=== PATIENT | female | born 1965 | race Caucasian/White ===

== ENCOUNTER 2025-04-25 02:26 | Day surgery (SDC) | payer OTHER, SELFPAY ==
--- OUTSIDE RECORDS SUMMARY | 2025-04-02 12:40 | XMS_ITS | Encounter Summary ---
Author Organization [place] Address [address] [facility] [place] [address] Care Team Providers Care Process Control Supervisor Name Role Phone Mariam Solorzano MD Unavailable [phone] Mariam Solorzano MD Primary Care Provider [phone] August, Mina Downey MD Unavailable Reason for Referral * Diagnostic Imaging XR (Routine) - Pending Review Specialty Diagnoses / Procedures Referred By Sabina cortés Referred To Contact Radiology. Diagnoses Acute cough Acute intractable headache, unspecified headache type Shortness of breath Procedures XR Chest 2 Views XR Chest 2 Views Sue Feliciano CNP [address] [place] [id number] Phone: tel: fax: Referral ID Status Reason Start Date Expiration Date V isits Requested Visits Authorized [id number] Pending Review 04/02/2025 04/02/2026 1 1 Reason for Visit * Reason Comments Cough Coughing out phlegm SOB, and congestion for the last few days. Co worker have pneumonia. Encounter Details Date Type Department Care Team (Latest Contact Info) Description 04/02/2025 12:40 PM CDT Office Visit [facility] [place] [address] [phone] Sue Feliciano CNP [address] [place] [id number] Pneumonia of both lower lobes due to infectious organism (Primary Dx); Acute cough; Acute intractable headache, unspecified headache type; Shortness of breath; History of candidal vulvovaginitis Social History Tobacco Use Types Packs/Day Years Used Date Smoking Tobacco: Never Passive Smoke Exposure: Never Smokeless Tobacco: Never Alcohol Use Standard Drinks/Week Comments Yes 0 (1 standard drink = 0.6 oz pur e alcohol) occasional AUDIT-C Answer Date Recorded Q1: How often do you have a drink containing alc ohol? 2-4 times a month 10/16/2023 Average Number of Drinks Not on file 024 Frequency of Binge Drinking Not on file 09/30 PHQ-2 Answer Date Recorded PHQ-2 Score 1 02/20/2025 [facility] - Occupational Stress Questionnaire Answer Date Recorded Do you feel stress - tense, restless, nervous, or anxious, or unable to sleep at night because your mind is troubled all the time - these days? Rather much 02/20/2025 Exercise Vital Sign Answer Date Recorde d On average, how many days pe r week do you engage in moderate to strenuous exercise (like a brisk walk)? 0 days Minutes of Exercise per Session Not on file 02/20/2025 Adolescent Education Answer Date Record ed Getting School Help Needed Not on file 08/30 Social Connections Answer Date Recorded How often do you feel lonely or isolated from th ose around you? Never 02/20/2025 Food Insecurity Answer Date Recorded Within the past 12 months, d id you worry that your food would run out before you got money to buy more? No 02/20/2025 Within the past 12 months, d id the food you bought just not last and you didn t have money to get more? No 02/20/2025 Housing Stability Answer Date Recorded Do you have housing? (Housin g is defined as stable permanent housing and does not include staying outside in a car, in a tent, in an abandoned building, in an overnight prison, or couch-surfing.) Yes 02/20/2025 Are you worried about losing your housing? No 02/20/2025 Financial Resource Strain Answer Date R ecorded Within the past 12 months, h ave you or your family members you live with been unable to get utilities (heat, electricity) when it was really needed? No 02/20/2025 Transportation Needs Answer Date Record ed Within the past 12 months, h as lack of transportation kept you from medical appointments, getting your medicines, non-medical meetings or appointments, work, or from getting things that you need? No 02/20/2025 Interpersonal Safety Answer Date Record ed Do you feel physically and e motionally safe where you currently live? Yes 02/20/2025 Within the past 12 months, h ave you been hit, slapped, kicked or otherwise physically hurt by someone? No 02/20/2025 Within the past 12 months, h ave you been humiliated or emotionally abused in other ways by your partner or ex-partner? 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 Gender Identity Not on file Sexual Orientation Not on file documented as of this encounter Last Filed Vital Signs Vital Sign Reading Time Taken Comments Blood Pressure 122/74 04/02/2025 12:42 PM CDT Pulse 95 04/02/2025 12:42 PM CDT Temperature 37.7 C (99.8 F) 04/02/2025 12:42 PM CDT Respiratory Rate 18 04/02/2025 12:42 PM CDT Oxygen Saturation 95% 04/02/2025 12:42 PM CDT Inhaled Oxygen Concentration - - Weight 72.7 kg (160 lb 3.2 oz) 04/02/2025 12:42 PM CDT Height 163.8 cm (5' 4.5) 04/02/2025 12:42 PM CD T Body Mass Index 27.07 04/02/2025 12:42 PM CDT documented in this encounter Patient Instructions * Patient Instructions* Sue Feliciano CNP - 04/02/2025 12:40 PM CDT Continue to take Mucinex during the day and try Delsym cough syrup at bedtime for cough suppression. If your symptoms worsen or fail to improve you should follow up with primary care or the emergency room if symptoms are worse. * Attachments The following attachments cannot be sent through Care Everywhere. * Pneumonia (Malaysian) documented in this encounter Progress Notes * Lobo Scott MA - 04/02/2025 12:40 PM CDT Urgent Care Clinic Visit Chief Complaint Patient presents with Cough Coughing out phlegm SOB, and congestion for the last few days. Co worker have pneumonia. 04/02/2025 12:46 PM Additional Questions Roomed by Lobo Scott MA Accompanied by Self * Sue Feliciano CNP - 04/02/2025 12:40 PM CDT ICD-10-CM 1. Pneumonia of both lower lobes due to infectious organism J18.9 amoxicillin (AMOXIL) 500 MG capsule azithromycin (ZITHROMAX) 250 MG tablet albuterol (PROAIR HFA/PROVENTIL HFA/VENTOLIN HFA) 108 (90 Base) MCG/ACT inhaler 2. Acute cough R05.1 CBC with platelets and differential D dimer quantitative albuterol (PROVENTIL) neb solution 2.5 mg COVID-19 Virus (Coronavirus) by PCR Nasal, Anterior XR Chest 2 Views CBC with platelets and differential COVID-19 Virus (Coronavirus) by PCR Nasal, Anterior CANCELED: XR Chest 2 Views 3. Acute intractable headache, unspecified headache type R51.9 CBC with platelets and differential XR Chest 2 Views CBC with platelets and differential CANCELED: XR Chest 2 Views 4. Shortness of breath R06.02 CBC with platelets and differential D dimer quantitative albuterol (PROVENTIL) neb solution 2.5 mg COVID-19 Virus (Coronavirus) by PCR Nasal, Anterior XR Chest 2 Views CBC with platelets and differential COVID-19 Virus (Coronavirus) by PCR Nasal, Anterior albuterol (PROAIR HFA/PROVENTIL HFA/VENTOLIN HFA) 108 (90 Base) MCG/ACT inhaler CANCELED: XR Chest 2 Views 5. History of candidal vulvovaginitis Z86.19 fluconazole (DIFLUCAN) 150 MG tablet She felt it was easier to take deep breaths and was not coughing as often after the albuterol neb was given. Will send in RX for albuterol inhaler. Azithromycin and amoxicillin to treat pneumonia. Rest. Fluids. Delsym for cough suppression at night. Mucinex as desired during the day. Tylenol or ibuprofen as needed for fever or pain. Recheck in 10 days if symptoms have not improved, sooner if they worsen. History of yeast vaginitis with antibiotics so fluconazole tablet is sent to the pharmacy. She is instructed not to take this until she is done with the antibiotics and only if she has symptoms. Red flag warning signs and when to go to the emergency room discussed. Reviewed potential adverse reactions to medications. Very mild elevation of the d dimer but this would correlate with bilateral pneumonia as well. She knows to go to the emergency room if her shortness of breath worsens. Chest x-ray as read by this provider shows bilateral lower lobe infiltrates, no effusions or pneumothorax, heart is within normal size limits. Labs: Recent Results (from the past 24 hours) D dimer quantitative Result Value Ref Range D-Dimer Quantitative 0.62 (H) 0.00 - 0.50 ug/mL FEU Narrative This D-dimer assay is intended for use in conjunction with a clinical pretest probability assessment model to exclude pulmonary embolism (PE) and deep venous thrombosis (DVT) in outpatients suspectedof PE or DVT. The cut-off value is 0.50 ug/mL FEU. For patients 50 years of age or older, the application of age-adjusted cut-off values for D-Dimer may increase the specificity without significant effect on sensitivity. The literature suggested calculation age adjusted cut-off in ug/L = age in years x 10 ug/L. The results in this laboratory are reported as ug/mL rather than ug/L. The calculation for age adjusted cut off in ug/mL= age in years x 0.01 ug/mL. For example, the cut off for a 76 year old male is 76 x 0.01 ug/mL = 0.76 ug/mL (760 ug/L). Len Braxton et al. Age adjusted D-dimer cut-off levels to rule out pulmonary embolism: The ADJUST-PE Study. RICARDO 2014;311:6809-2260.; RUBIO Figueroa et al. Diagnostic accuracy of conventional or age adjusted D-dimer cutoff values in older patients with suspected venous thromboembolism. Systemic review and meta- analysis. BMJ 2013:346:f2492. CBC with platelets and differential Narrative The following orders were created for panel order CBC with platelets and differential. Procedure Abnormality Status --------- ------ CBC with platelets and ...[[id number]] Final result Please view results for these tests on the individual orders. CBC with platelets and differential Result Value Ref Range WBC Count 8.78 4.00 - 11.00 10e3/uL RBC Count 4.37 3.80 - 5.20 10e6/uL Hemoglobin 12.5 11.7 - 15.7 g/dL Hematocrit 37.3 35.0 - 47.0 % MCV 85.4 78.0 - 100.0 fL MCH 28.6 26.5 - 33.0 pg MCHC 33.5 31.5 - 36.5 g/dL RDW 12.4 10.0 - 15.0 % Platelet Count 338 150 - 450 10e3/uL % Neutrophils 76.7 % % Lymphocytes 9.6 % % Monocytes 10.8 % % Eosinophils 2.6 % % Basophils 0.2 % % Immature Granulocytes 0.1 % Absolute Neutrophils 6.73 1.60 - 8.30 10e3/uL Absolute Lymphocytes 0.84 0.80 - 5.30 10e3/uL Absolute Monocytes 0.95 0.00 - 1.30 10e3/uL Absolute Eosinophils 0.23 0.00 - 0.70 10e3/uL Absolute Basophils <0.04 0.00 - 0.20 10e3/uL Absolute Immature Granulocytes <0.04 <=0.40 10e3/uL XR Chest 2 Views Narrative EXAM: XR CHEST 2 VIEWS LOCATION: [facility] DATE: 04/02/2025 INDICATION: Acute cough, shortness of breath COMPARISON: None. Impression IMPRESSION: Right lower lobe consolidation, suspicious for infection. Additional patchy opacity in the left lower lung, which may represent an additional area of infection versus atelectasis. No pleural effusion or pneumothorax. Cardiac silhouette and mediastinal contours are normal. SUBJECTIVE: Mariam Thompson is a 60 year old female presenting with a chief complaint of Chief Complaint Patient presents with Cough Coughing out phlegm SOB, and congestion for the last few days. Co worker have pneumonia. Started with headaches, then got a cough which is making head hurt worse, feels weak, sore throat, and shortness of breath. Review of systems is negative except for as noted in the HPI. OBJECTIVE BP 122/74 (BP Location: Right arm, Patient Position: Sitting, Cuff Size: Adult Regular) Pulse 95 Temp 99.8 ??F (37.7 ??C) (Oral) Resp 18 Ht 1.638 m (5' 4.5) Wt 72.7 kg (160 lb 3.2 oz) LMP (LMP Unknown) SpO2 95% BMI 27.07 kg/m?? GENERAL: Alert, mild distress SKIN: skin is clear, no rash or abnormal pigmentation HEAD: The head is normocephalic. EYES: The eyes are normal. The conjunctivae and cornea normal. NECK: The neck is supple and thyroid is normal, no masses; LYMPH NODES: No adenopathy HENT: Bilateral tympanic membranes and canals appear normal, nasal passages are swollen with clear rhinorrhea, pharynx is LUNGS: Expiratory wheezes heard in bases CV: Rhythm is regular. S1 and S2 are normal. No murmurs. EXTREMITIES: Symmetric extremities no deformities Sue Bosch APRN, CNP [place] [facility] Provider The use of [employer] dictation services may have been used to construct the content in this note; any grammatical or spelling errors are non- intentional. Please contact the author of this note directly if you are in need of any clarification. documented in this encounter Plan of Treatment Not on file documented as of this encounter Procedures Procedure Name Priority Date/Time Associated Diagnosis Comments COVID-19 VIRUS (CORONAVIRUS) BY PCR Routine 04/02/2025 1:21 PM CDT Acute cough Shortness of breath CBC WITH PLATELETS AND DIFFERENTIAL Routine 04/02/2025 1:20 PM CDT Acute cough Acute intractable headache, unspecified headache type Shortness of breath CBC WITH PLATELETS & DIFFERENTIAL Routine 04/02/2025 1:20 PM CDT Acute cough Acute intractable headache, unspecified headache type Shortness of breath D DIMER QUANTITATIVE STAT 04/02/2025 1:20 PM CDT Acute cough Shortness of breath documented in this encounter Results * XR Chest 2 Views (04/02/2025 1:30 PM CDT) Anatomical Region Laterality Modality Chest Computed Radiogr aphy 04/02/2025 1:30 PM CDT Impressions 04/02/2025 1:33 PM CDT IMPRESSION: Right lower lobe consolidation, suspicious for infection. Additional patchy opacity in the left lower lung, which may represent an additional area of infection versus atelectasis. No pleural effusion or pneumothorax. Cardiac silhouette and mediastinal contours are normal. Narrative 04/02/2025 1:33 PM CDT EXAM: XR CHEST 2 VIEWS LOCATION: [facility] DATE: 04/02/2025 INDICATION: Acute cough, shortness of breath COMPARISON: None. Procedure Note Clifton Carranza MD - 04/02/2025 EXAM: XR CHEST 2 VIEWS LOCATION: [facility] DATE: 04/02/2025 INDICATION: Acute cough, shortness of breath COMPARISON: None. IMPRESSION: Right lower lobe consolidation, suspicious for infection.Additional patchy opacity in the left lower lung, which may represent anadditional area of infection versus atelectasis. No pleural effusion orpneumothorax. Cardiac silhouette and mediastinal contours are normal. Sue Feliciano [facility] DIAGNOSTIC IMAG[facility] ORDER DIVYA Final Result * COVID-19 Virus (Coronavirus) by PCR Nasal, Anterior (04/02/2025 1:21 PM CDT) SARS CoV2 PCR Negative Negative 04/02/2025 6:39 PM CDT [facility] Comment:NEGATIVE: SARS-CoV-2 (COVID-19) RNA not detected, presumed negative. Swab (Nasal, Anterior) Non-blood Collection / Unknown 04/02/2025 1:21 PM CDT 04/02/2025 1:34 PM CDT Narrative [facility] - 04/02/2025 6:39 PM CDT Testing was performed using the Aptima SARS-CoV-2 Assay on the [employer] Instrument System. This [place] FDA cleared test is for use in the detection of SARS-CoV-2 in individuals who meet SARS-CoV-2 clinical and/or epidemiological criteria. This test is for in vitro diagnostic use under the US FDA for laboratories certified under CLIA to perform high complexity testing. A negative result does not rule out the presence of PCR inhibitors in the specimen or target RNA in concentration below the limit of detection for the assay. The possibility of a false negative should be considered if the patient's recent exposure or clinical presentation suggests COVID-19. This test was validated by the [facility]. This laboratory is certified under the Clinical Laboratory Improvement Amendments of 1988 (CLIA-88) as qualified to perform high complexity laboratory testing. Sue Feliciano [facility] - MICRO GENERAL ORDERABL ES Final Result [facility] Inf. Diseases Di[facility]. Lab [address] [facility], [address] [place] [address], [facility] * CBC with platelets and differential (04/02/2025 1:20 PM CDT) WBC Count 8.78 4.00 - 11.00 10e3/uL 04/02/2025 1:25 PM CDT [facility] RBC Count 4.37 3.80 - 5.20 10e6/uL 04/02/2025 1:25 PM CDT [facility] Hemoglobin 12.5 11.7 - 15.7 g/dL 04/02/2025 1:25 PM CDT [facility] Hematocrit 37.3 35.0 - 47.0 % 04/02/2025 1:25 PM CDT [facility] MCV 85.4 78.0 - 100.0 fL 04/02/2025 1:25 PM CDT [facility] MCH 28.6 26.5 - 33.0 pg 04/02/2025 1:25 PM CDT [facility] MCHC 33.5 31.5 - 36.5 g/dL 04/02/2025 1:25 PM CDT [facility] RDW 12.4 10.0 - 15.0 % 04/02/2025 1:25 PM CDT [facility] Platelet Count 338 150 - 450 10e3/uL 04/02/2025 1:25 PM CDT [facility] % Neutrophils 76.7 % 04/02/2025 1:25 PM CDT [facility] % Lymphocytes 9.6 % 04/02/2025 1:25 PM CDT [facility] % Monocytes 10.8 % 04/02/2025 1:25 PM CDT [facility] % Eosinophils 2.6 % 04/02/2025 1:25 PM CDT [facility] % Basophils 0.2 % 04/02/2025 1:25 PM CDT [facility] % Immature Granulocytes 0.1 % 04/02/2025 1:25 PM CDT [facility] Absolute Neutrophils 6.73 1.60 - 8.30 10e3/uL 04/02/2025 1:25 PM CDT [facility] Absolute Lymphocytes 0.84 0.80 - 5.30 10e3/uL 04/02/2025 1:25 PM CDT [facility] Absolute Monocytes 0.95 0.00 - 1.30 10e3/uL 04/02/2025 1:25 PM CDT [facility] Absolute Eosinophils 0.23 0.00 - 0.70 10e3/uL 04/02/2025 1:25 PM CDT [facility] Absolute Basophils <0.04 0.00 - 0.20 10e3/uL 04/02/2025 1:25 PM CDT [facility] Absolute Immature Granulocytes <0.04 <=0.40 10e3/uL 04/02/2025 1:25 PM CDT [facility] Blood BLOOD SPECIMEN / Unknown Venipuncture / Unknown 04/02/2025 1:20 PM CDT 04/02/2025 1:20 PM CDT us Sue Feliciano CNP LAB - BLOOD ORDERABLES Final Result [facility] [address] Lab (no room number, 1st floor of clinic) [place] [address], [facility] * (ABNORMAL) D dimer quantitative (04/02/2025 1:20 PM CDT) D-Dimer Quantitative 0.62(H) 0.00 - 0.50 ug/mL FEU 04/02/2025 2:00 PM CDT [facility] Blood BLOOD SPECIMEN / Unknown Venipuncture / Unknown 04/02/2025 1:20 PM CDT 04/02/2025 1:20 PM CDT Narrative [facility] - 04/02/2025 2:00 PM CDT This D-dimer assay is intended for use in conjunction with a clinical pretest probability assessment model to exclude pulmonary embolism (PE) and deep venous thrombosis (DVT) in outpatients suspected of PE or DVT. The cut-off value is 0.50 ug/mL FEU. For patients 50 years of age or older, the application of age-adjusted cut-off values for D-Dimer may increase the specificity without significant effect on sensitivity. The literature suggested calculation age adjusted cut-off in ug/L = age in years x 10 ug/L. The results in this laboratory are reported as ug/mL rather than ug/L. The calculation for age adjusted cut off in ug/mL= age in years x 0.01 ug/mL. For example, the cut off for a 76 year old male is 76 x 0.01 ug/mL = 0.76 ug/mL (760 ug/L). M Irais et al. Age adjusted D-dimer cut-off levels to rule out pulmonary embolism: The ADJUST-PE Study. RICARDO 2014;311:6290-0687.; HJ Henry et al. Diagnostic accuracy of conventional or age adjusted D-dimer cutoff values in older patients with suspected venous thromboembolism. Systemic review and meta-analysis. BMJ 2013:346:f2492. us Sue Feliciano CNP LAB - BLOOD ORDERABLES Final Result LABORATORY [facility] [address] Lab (no room number, 1st floor of clinic) [place] [address], [facility] documented in this encounter Visit Diagnoses Diagnosis Pneumonia of both lower lobes due to infectious organism- Primary Acute cough Acute intractable headache, unspecified headache type Shortness of breath History of candidal vulvovaginitis Personal history of other genital system and obstetric disorders Acute cough Acute intractable headache, unspecified headache type Shortness of breath documented in this encounter Administered Medications Inactive Administered Medications - up to 3 most recent administrations Medication Order MAR Action Action Date Dose Rate Site albuterol (PROVENTIL) neb solution 2.5 mg 2.5 mg, Nebulization, ONCE, On Mabel 04/02/25 at 1330, For 1 doseIndications:Acute cough,Shortness of breath $Given 04/02/2025 1:34 PM CDT 2.5 mg documented in this encounter Care Teams Process Control Supervisor Relationship Specialty [place] [address] [place] [address] PCP - General Family Medicine 10/16/23 [place] [address] [place] [address] Assigned PCP 09/22/23August, Mina Downey MD [address] [facility] [address] [place] [address] Assigned Heart and Vascular Provider 10/23/23 documented as of this encounter
--- OUTSIDE RECORDS SUMMARY | 2025-04-02 13:20 | XMS_ITS | Encounter Summary ---
Author Organization [place] Address [address] [place] [address]. [place] [address] Care Team Providers Care Electrical Maintenance Man Name Role Phone Mariam Solorzano MD Unavailable [phone] Mariam Solorzano MD Primary Care Provider [phone] August, Mina Downey MD Unavailable [phone] Reason for Visit * Diagnostic Imaging XR (Routine) - Pending Review Specialty Diagnoses / Procedures Referred By Sabina cortés Referred To Contact Radiology. Diagnoses Acute cough Acute intractable headache, unspecified headache type Shortness of breath Procedures XR Chest 2 Views XR Chest 2 Views Sue Feliciano CNP [address] [place] [address] Phone: tel: fax: Referral ID Status Reason Start Date Expiration Date V isits Requested Visits Authorized [id number] Pending Review 04/02/2025 04/02/2026 1 1 Encounter Details Date Type Department Care Team (Latest Contact Info) Description 04/02/2025 1:20 PM CDT Ancillary Procedure [facility] [address] [phone] Sue Feliciano CNP [address] [place] [phone] Acute cough; Acute intractable headache, unspecified headache type; Shortness of breath Social History Tobacco Use Types Packs/Day Years [...] Answer Date Recorded PHQ-2 Score 1 02/20/2025 [facility] - Occupational Stress Questionnaire Answer Date [...] Answer Date Recorded Do you have housing? 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 DATE: 04/02/2025 INDICATION: Acute cough, shortness of breath COMPARISON: None. Procedure Note Clifton Carranza MD - 04/02/2025 EXAM: XR CHEST 2 VIEWS LOCATION: [facility] DATE: 04/02/2025 INDICATION: Acute cough, shortness of breath COMPARISON: None. IMPRESSION: Right lower lobe consolidation, suspicious for infection.Additional patchy opacity in the left lower lung, which may represent anadditional area of infection versus atelectasis. No pleural effusion orpneumothorax. Cardiac silhouette and mediastinal contours are normal. Sue Feliciano [facility]NO[facility]IC [facility] ORDER DIVYA Final Result documented in this encounter Visit Diagnoses Diagnosis Acute cough Acute intractable headache, unspecified headache type Shortness of breath documented in this encounter Additional Health Concerns Infection Onset Date Last Indicated Resolved Time Rule Out COVID-19 04/02/2025 04/02/2025 04/02/2025 6:39 PM CDT documented as of this encounter Care Teams Electrical Maintenance Man Relationship Specialty Start [place] [address] [place] [address] PCP - General Family Medicine 10/16/23 [place] [address] [place] [address] Assigned PCP 09/22/23August, Mina Downey MD [address] [facility] [address] [place] [address] Assigned Heart and Vascular Provider 10/23/23 documented as of this encounter
--- OUTSIDE RECORDS SUMMARY | 2025-04-09 09:30 | XMS_ITS | Encounter Summary ---
Author Organization [place] Address [address] [place] [address]. [place] [address] Care Team Providers Care Blasting Cap Assembler Name Role Phone Mariam Solorzano MD Unavailable [phone] Mariam Solorzano MD Primary Care Provider [phone] August, Mina Downey MD Unavailable [phone] Reason for Visit * Reason Comments Cough - was diagnosed with pneumonia; still coughing up phlegm Encounter Details Date Type Department Care Team (Late st Contact Info) Description 04/09/2025 9:30 AM CDT Office Visit [address] [address] Andres Fishman APRN [facility] [address] [place] [address] Acute cough (Primary Dx) Social History Tobacco Use Types Packs/Day Years [...] Answer Date Recorded PHQ-2 Score 1 02/20/2025 [facility] of Occupat ional Health - Occupational Stress [...] in an abandoned building, in an overnight half-way, or couch-surfing.) Yes 02/20/2025 Are you worried [...] on file Legal 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 Female 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 Gender Identity Not on file Sexual Orientation Not on file documented as of this encounter Last Filed Vital Signs Vital Sign Reading Time Taken Comments Blood Pressure 120/69 04/09/2025 9:06 AM CDT Pulse 69 04/09/2025 9:06 AM CDT Temperature 36.6 C (97.8 F) 04/09/2025 9:06 AM CDT Respiratory Rate 18 04/09/2025 9:06 AM CDT Oxygen Saturation 97% 04/09/2025 9:06 AM CDT Inhaled Oxygen Concentration - - Weight 70.9 kg (156 lb 3.2 oz) 04/09/2025 9:06 A M CDT Height 163.8 cm (5' 4.5) 04/09/2025 9:06 AM CDT Body Mass Index 26.4 04/09/2025 9:06 AM CDT documented in this encounter Patient Instructions * Patient Instructions* Andres Fishman APRN MGMT ANALYST - 04/09/2025 9:30 AM CDT Images from the original note were not included. Cough: Care Instructions Overview A cough is your body's response to something that bothers your throat or airways. Many things can cause a cough. You might cough because of a cold or the flu, bronchitis, or asthma. Smoking, postnasal drip, allergies, and stomach acid that backs up into your throat also can cause coughs. A cough is a symptom, not a disease. Most coughs stop when the cause, such as a cold, goes away. You can take a few steps at home to cough less and feel better. Follow-up care is a xavier part of your treatment and safety. Be sure to make and go to all appointments, and call your doctor if you are having problems. It's also a good idea to know your test resultsand keep a list of the medicines you take. How can you care for yourself at home? Drink lots of water and other fluids. This helps thin the mucus and soothes a dry or sore throat. Honey or lemon juice in hot water or tea may ease a dry cough. Take cough medicine as directed by your doctor. Prop up your head on pillows to help you breathe and ease a dry cough. Try cough drops or hard candy to soothe a dry or sore throat. Do not smoke. Avoid secondhand smoke. If you need help quitting, talk to your doctor about stop-smoking programs and medicines. These can increase your chances of quitting for good. When should you call for help? Call 911 anytime you think you may need emergency care. For example, call if: You have severe trouble breathing. Call your doctor now or seek immediate medical care if: You cough up blood. You have new or worse trouble breathing. You have a new or higher fever. You have a new rash. Watch closely for changes in your health, and be sure to contact your doctor if: You cough more deeply or more often, especially if you notice more mucus or a change in the color of your mucus. You have new symptoms, such as a sore throat, an earache, or sinus pain. You do not get better as expected. documented in this encounter Progress Notes * Andres Fishman APRN CNP - 04/09/2025 9:30 AM CDT Images from the original note were not included. Office Visit: Assessment & Plan (R05.1) Acute cough (primary encounter diagnosis) Comment: Persistent cough post PNA diagnosis. Completed Azithromycin, still taking Amoxicillin. VSS, LS clear, oxygenating well. Has been afebrile. Suspect post infectious cough. Re-evaluate CBC, if trending up may consider repeating azithromycin vs Levaquin. Start prednisone today, rest and fluids. Red Flag s/s discussed. Plan: CBC with platelets and differential, predniSONE (DELTASONE) 20 MG tablet BMI Estimated body mass index is 26.4 kg/m?? as calculated from the following: Height as of this encounter: 1.638 m (5' 4.5). Weight as of this encounter: 70.9 kg (156 lb 3.2 oz). Patient should follow up PRN for new or worsening symptoms. All questions answered to patient's satisfaction. Warning signs of when to seek emergency care were discussed. Ayesha Becerra is a 60 year old, presenting for the following health issues: Cough (- was diagnosed with pneumonia; still coughing up phlegm) 04/09/2025 9:06 AM Additional Questions Roomed by KAROLINA Regalado Accompanied by Self Cough History of Present Illness Reason for visit: Cough History of Present Illness- Mariam Thompson, 60-year-old female - Treated with azithromycin and amoxicillin for pneumonia prior to visit - Persistent productive cough since treatment, sputum unchanged from active pneumonia - Reports feeling better after sleeping all day Sunday and all night, but continues to cough up sputum - Experiences lightheadedness and feeling loopy during coughing episodes, especially when trying to perform tasks like typing - Difficulty catching breath during severe coughing episodes - Denies chest pain except when coughing - Denies fever at home - No current wheezing, but had wheezing previously - Albuterol use triggers coughing fits, no longer wheezing - Using cough syrup at night, helps with sleep - Taking amoxicillin and large pills twice daily as part of current treatment - History of high blood pressure and hyperlipidemia, started on Lipitor and antihypertensive medication last year - Prefers to avoid medications when possible - Reports being generally healthy for age, rarely gets colds Review of Systems Constitutional, neuro, ENT, endocrine, pulmonary, cardiac, gastrointestinal, genitourinary, musculoskeletal, integument and psychiatric systems are negative, except as otherwise noted. Objective BP 120/69 (BP Location: Right arm, Patient Position: Sitting, Cuff Size: Adult Regular) Pulse 69 Temp 97.8 ??F (36.6 ??C) (Oral) Resp 18 Ht 1.638 m (5' 4.5) Wt 70.9 kg (156 lb 3.2 oz) LMP (LMP Unknown) SpO2 97% No BMI 26.40 kg/m?? Body mass index is 26.4 kg/m??. Physical Exam GENERAL: alert and no distress NECK: no adenopathy, no asymmetry, masses, or scars RESP: lungs clear to auscultation - no rales, rhonchi or wheezes CV: regular rate and rhythm, normal S1 S2, no S3 or S4, no murmur, click or rub, no peripheral edema ABDOMEN: soft, nontender, no hepatosplenomegaly, no masses and bowel sounds normal MS: no gross musculoskeletal defects noted, no edema Recent Results (from the past 24 hours) CBC with platelets and differential Narrative The following orders were created for panel order CBC with platelets and differential. Procedure Abnormality Status --------- ------ CBC with platelets and ...[[id number]] Abnormal Final result Please view results for these tests on the individual orders. CBC with platelets and differential Result Value Ref Range WBC Count 5.98 4.00 - 11.00 10e3/uL RBC Count 4.60 3.80 - 5.20 10e6/uL Hemoglobin 13.0 11.7 - 15.7 g/dL Hematocrit 40.2 35.0 - 47.0 % MCV 87.4 78.0 - 100.0 fL MCH 28.3 26.5 - 33.0 pg MCHC 32.3 31.5 - 36.5 g/dL RDW 12.8 10.0 - 15.0 % Platelet Count 455 (H) 150 - 450 10e3/uL % Neutrophils 64.9 % % Lymphocytes 20.6 % % Monocytes 8.4 % % Eosinophils 4.5 % % Basophils 0.8 % % Immature Granulocytes 0.8 % Absolute Neutrophils 3.88 1.60 - 8.30 10e3/uL Absolute Lymphocytes 1.23 0.80 - 5.30 10e3/uL Absolute Monocytes 0.50 0.00 - 1.30 10e3/uL Absolute Eosinophils 0.27 0.00 - 0.70 10e3/uL Absolute Basophils 0.05 0.00 - 0.20 10e3/uL Absolute Immature Granulocytes 0.05 <=0.40 10e3/uL Patient Instructions Cough: Care Instructions Overview A cough is your body's response to something that bothers your throat or airways. Many things can cause a cough. You might cough because of a cold or the flu, bronchitis, or asthma. Smoking, postnasal drip, allergies, and stomach acid that backs up into your throat also can cause coughs. A cough is a symptom, not a disease. Most coughs stop when the cause, such as a cold, goes away. You can take a few steps at home to cough less and feel better. Follow-up care is a xavier part of your treatment and safety. Be sure to make and go to all appointments, and call your doctor if you are having problems. It's also a good idea to know your test resultsand keep a list of the medicines you take. How can you care for yourself at home? Drink lots of water and other fluids. This helps thin the mucus and soothes a dry or sore throat. Honey or lemon juice in hot water or tea may ease a dry cough. Take cough medicine as directed by your doctor. Prop up your head on pillows to help you breathe and ease a dry cough. Try cough drops or hard candy to soothe a dry or sore throat. Do not smoke. Avoid secondhand smoke. If you need help quitting, talk to your doctor about stop-smoking programs and medicines. These can increase your chances of quitting for good. When should you call for help? Call 911 anytime you think you may need emergency care. For example, call if: You have severe trouble breathing. Call your doctor now or seek immediate medical care if: You cough up blood. You have new or worse trouble breathing. You have a new or higher fever. You have a new rash. Watch closely for changes in your health, and be sure to contact your doctor if: You cough more deeply or more often, especially if you notice more mucus or a change in the color of your mucus. You have new symptoms, such as a sore throat, an earache, or sinus pain. You do not get better as expected. Signed Electronically by: Andres Fishman APRN CNP Answers submitted by the patient for this visit: General Questionnaire (Submitted on 04/09/2025) Chief Complaint: Chronic problems general questions HPI Form What is the reason for your visit today? : cough Questionnaire about: Chronic problems general questions HPI Form (Submitted on 04/09/2025) Chief Complaint: Chronic problems general questions HPI Form documented in this encounter Plan of Treatment Not on file documented as of this encounter Procedures Procedure Name Priority Date/Time Associated Diagnosis Comments CBC WITH PLATELETS AND DIFFERENTIAL Routine 04/09/2025 9:45 AM CDT Acute cough CBC WITH PLATELETS & DIFFERENTIAL Routine 04/09/2025 9:45 AM CDT Acute cough documented in this encounter Results * (ABNORMAL) CBC with platelets and differential (04/09/2025 9:45 AM CDT) Pathologist [facility] WBC Count 5.98 4.00 - 11.00 10e3/uL 04/09/2025 9:53 AM CDT [facility] RBC Count 4.60 3.80 - 5.20 10e6/uL 04/09/2025 9:53 AM CDT [facility] Hemoglobin 13.0 11.7 - 15.7 g/dL 04/09/2025 9:53 AM CDT [facility] Hematocrit 40.2 35.0 - 47.0 % 04/09/2025 9:53 AM CDT [facility] MCV 87.4 78.0 - 100.0 fL 04/09/2025 9:53 AM CDT [facility] MCH 28.3 26.5 - 33.0 pg 04/09/2025 9:53 AM CDT [facility] MCHC 32.3 31.5 - 36.5 g/dL 04/09/2025 9:53 AM CDT [facility] RDW 12.8 10.0 - 15.0 % 04/09/2025 9:53 AM CDT [facility] Platelet Count 455(H) 150 - 450 10e3/uL 04/09/2025 9:53 AM CDT [facility] % Neutrophils 64.9 % 04/09/2025 9:53 AM CDT [facility] % Lymphocytes 20.6 % 04/09/2025 9:53 AM CDT [facility] % Monocytes 8.4 % 04/09/2025 9:53 AM CDT [facility] % Eosinophils 4.5 % 04/09/2025 9:53 AM CDT [facility] % Basophils 0.8 % 04/09/2025 9:53 AM CDT [facility] % Immature Granulocytes 0.8 % 04/09/2025 9:53 AM CDT [facility] Absolute Neutrophils 3.88 1.60 - 8.30 10e3/uL 04/09/2025 9:53 AM CDT [facility] Absolute Lymphocytes 1.23 0.80 - 5.30 10e3/uL 04/09/2025 9:53 AM CDT [facility] Absolute Monocytes 0.50 0.00 - 1.30 10e3/uL 04/09/2025 9:53 AM CDT [facility] Absolute Eosinophils 0.27 0.00 - 0.70 10e3/uL 04/09/2025 9:53 AM CDT [facility] Absolute Basophils 0.05 0.00 - 0.20 10e3/uL 04/09/2025 9:53 AM CDT [facility] Absolute Immature Granulocytes 0.05 <=0.40 10e3/uL 04/09/2025 9:53 AM CDT [facility] Blood BLOOD SPECIMEN / Unknown Venipuncture / Unknown 04/09/2025 9:45 AM CDT 04/09/2025 9:45 AM CDT us Andres Fishman GANG SUPERVISOR PIPE LINES MGMT ANALYST LAB - BLOOD ORDERABLES Fin al Result [facility] [address] [facility] (no room number, 1st floor of clinic) [place] [address], [facility] documented in this encounter Visit Diagnoses Diagnosis Acute cough- Primary documented in this encounter Care Teams Blasting Cap Assembler Relationship Specialty [place] [address] [place] [address] PCP - General Family Medicine 10/16/23 [place] [address] [place] [address] Assigned PCP 09/22/23 Mina Sotelo MD [address] [facility] [address] [place], [place] [address] Assigned Heart and Vascular Provider 10/23/23 documented as of this encounter
[2025-04-25] VITALS (17 sets, daily range): BP systolic 103–154; BP diastolic 58–98; PULSE 67–92; RESP 14–22; TEMP 36.2–37.4; O2SAT 90–99; BMI 28.3
--- OUTSIDE RECORDS SUMMARY | 2025-04-25 02:28 | XMS_ITS | Encounter Summary ---
Author Organization [place] Address [address] [place] [address]. [place] [address] Care Team Providers Care Rand Maker Name Role Phone Mariam Solorzano MD Unavailable [phone] Mariam Solorzano MD Primary Care Provider [phone] August, Mina Downey MD Unavailable [phone] Encounter Details Date Type Department Care Team (Late st Contact Info) Description 10/16/2023 MyC Medical Advice [facility] [id number] [place] [phone] Mariam Solorzano MD [address] [place] [address] Social History Tobacco Use Types Packs/Day Years Used Date Smoking Tobacco: Never Smokeless Tobacco: Never Alcohol Use Standard Drinks/Week Comments Yes 0 (1 standard drink = 0.6 oz pur e alcohol) occasional Social Connection and Isolat ion Panel [NHANES] Answer Date Recorded In a typical week, how many times do you talk on the phone with family, friends, or neighbors? More than three times a week 10/16/2023 How often do you get togethe r with friends or relatives? Once a week 10/16/2023 Attends Christian Services Not on file 10/15 Do you belong to any clubs o r organizations such as christianity groups, unions, fraternal or athletic groups, or school groups? No 10/16/2023 How often do you attend meet ings of the clubs or organizations you belong to? 1 to 4 times per year 10/16/2023 Marital Status Not on file 10/16/2023 AUDIT-C Answer Date Recorded Q1: How often do you have a drink containing alc ohol? 2-4 times a month 10/16/2023 Average Number of Drinks Not on file 024 Frequency of Binge Drinking Not on file 09/30 PHQ-2 Answer Date Recorded PHQ-2 Score 0 10/16/2023 [facility] of Occupat ional Health - Occupational Stress Questionnaire Answer Date Recorded Do you feel stress - tense, restless, nervous, or anxious, or unable to sleep at night because your mind is troubled all the time - these days? Only a little 10/16/2023 Exercise Vital Sign Answer Date Recorde d On average, how many days pe r week do you engage in moderate to strenuous exercise (like a brisk walk)? 5 days 10/16/2023 On average, how many minutes do you engage in exercise at this level? 40 min 10/16/2023 Adolescent Education Answer Date Record ed Getting School Help Needed Not on file 08/30 Food Insecurity Answer Date Recorded Within the past 12 months, d id you worry that your food would run out before you got money to buy more? No 10/16/2023 Within the past 12 months, d id the food you bought just not last and you didn t have money to get more? No 10/16/2023 Housing Stability Answer Date Recorded Do you have housing? (Housin g is defined as stable permanent housing and does not include staying outside in a car, in a tent, in an abandoned building, in an overnight mcc, or couch-surfing.) Yes 10/16/2023 Are you worried about losing your housing? No 10/16/2023 Financial Resource Strain Answer Date R ecorded Within the past 12 months, h ave you or your family members you live with been unable to get utilities (heat, electricity) when it was really needed? No 10/16/2023 Transportation Needs Answer Date Record ed Within the past 12 months, h as lack of transportation kept you from medical appointments, getting your medicines, non-medical meetings or appointments, work, or from getting things that you need? No 10/16/2023 Interpersonal Safety Answer Date Record ed Do you feel physically and e motionally safe where you currently live? Yes 10/16/2023 Within the past 12 months, h ave you been hit, slapped, kicked or otherwise physically hurt by someone? No 10/16/2023 Within the past 12 months, h ave you been humiliated or emotionally abused in other ways by your partner or ex-partner? 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 Answer Date of Assessment Author 2-4 times a month 10/16/2023 10:07 AM CDT Kiera Ferrell documented as of this encounter Plan of Treatment Not on file documented as of this encounter Visit Diagnoses Not on filedocumented in this encounter Additional Health Concerns Infection Onset Date Last Indicated Resolved Time Rule Out COVID-19 04/02/2025 04/02/2025 04/02/2025 6:39 PM CDT documented as of this encounter Care Teams Rand Maker Relationship Specialty Start [place] [address] [place] [address] PCP - General Family Medicine 10/16/23 [place] [address] [place] [address] Assigned PCP 09/22/23AugustMina MD [address] [place] [address] Assigned Heart and Vascular Provider 10/23/23 documented as of this encounter
--- OUTSIDE RECORDS SUMMARY | 2025-04-25 02:29 | XMS_ITS | Encounter Summary ---
Author Organization [place] Address [address] [place] [address]. [place] [address] Care Team Providers Care Pasteurizing Machine Operator Name Role Phone Mariam Solorzano MD Unavailable [phone] Mariam Solorzano MD Primary Care Provider [phone] August, Mina Downey MD Unavailable [phone] Encounter Details Date Type Department Care Team (Late st Contact Info) Description 02/23/2025 Results Follow-Up [facility] [id number] [place] [phone] Mariam Solorzano MD [address] [place] [address] Subj: Message about your results Social History Tobacco Use Types Packs/Day Years [...] Answer Date Recorded PHQ-2 Score 1 02/20/2025 [facility] [place] of Occupat ional Health - Occupational Stress [...] Answer Date Recorded Do you have housing? 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 Gender Identity Not on file Sexual Orientation Not on file documented as of this encounter Plan of Treatment Not on file documented as of this encounter Visit Diagnoses Not on filedocumented in this encounter Additional Health Concerns Infection Onset Date Last Indicated Resolved Time Rule Out COVID-19 04/02/2025 04/02/2025 04/02/2025 6:39 PM CDT documented as of this encounter Care Teams Pasteurizing Machine Operator Relationship Specialty [place] [address] [place] [address] PCP - General Family Medicine 10/16/23 [place] [address] [place] [address] Assigned PCP 09/22/23August, Mina Downey MD [address] [facility] [address] [place], [place] [address] Assigned Heart and Vascular Provider 10/23/23 documented as of this encounter
--- OUTSIDE RECORDS SUMMARY | 2025-04-25 02:29 | XMS_ITS | Encounter Summary ---
Author Organization [place] Address [address] [place] [address]. [place] [address] Care Team Providers Care Optical Goods Drill Operator Name Role Phone Mariam Solorzano MD Unavailable [phone] Mariam Solorzano MD Primary Care Provider [phone] August, Mina Downey MD Unavailable [phone] Reason for Visit * Reason Onset Date Comments MyChart Communication 12/18/2023 Encounter Details Date Type Department Care Team (Late st Contact Info) Description 12/18/2023 MyC Medical Advice [facility] [id number] [place] [phone] [place] [id number] [place] [address] MyChart Communication Social History Tobacco Use Types Packs/Day Years [...] or relatives? 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 Gender Identity Not on file Sexual Orientation Not on file documented as of this encounter Plan of Treatment Not on file documented as of this encounter Visit Diagnoses Not on filedocumented in this encounter Additional Health Concerns Infection Onset Date Last Indicated Resolved Time Rule Out COVID-19 04/02/2025 04/02/2025 04/02/2025 6:39 PM CDT documented as of this encounter Care Teams Optical Goods Drill Operator Relationship Specialty [place] [address] [place] [address] PCP - General Family Medicine 10/16/23 [place] [address] [place] [address] Assigned PCP 09/22/23AugustMina MD [address] [facility] [address] [place] [address] Assigned Heart and Vascular Provider 10/23/23 documented as of this encounter
--- OUTSIDE RECORDS SUMMARY | 2025-04-25 02:29 | XMS_ITS | Encounter Summary ---
Author Organization [place] Address [address] [place] [address]. [place] [address] Care Team Providers Care Physician Internist Name Role Phone Mariam Solorzano MD Unavailable [phone] Mariam Solorzano MD Primary Care Provider [phone] August, Mina Downey MD Unavailable [phone] Encounter Details Date Type Department Care Team (Latest Contact Info) Description 04/25/2025 Travel Social History Tobacco Use Types Packs/Day Years [...] Answer Date Recorded PHQ-2 Score 1 02/20/2025 [facility] of Occupat ional Health - Occupational Stress [...] Date Recorded Do you have housing? 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 Gender Identity Not on file Sexual Orientation Not on file documented as of this encounter Plan of Treatment Not on file documented as of this encounter Visit Diagnoses Not on filedocumented in this encounter Care Teams Physician Internist Relationship Specialty Start [place] [address] [place] [address] PCP - General Family Medicine 10/16/23 [place] [address] [place] [address] Assigned PCP 09/22/23AugustMina MD [address] [facility] [address] [place], [place] [address] Assigned Heart and Vascular Provider 10/23/23 documented as of this encounter
--- OUTSIDE RECORDS SUMMARY | 2025-04-25 02:29 | XMS_ITS | Encounter Summary ---
Author Organization [facility] Address [address] [place] [address]. [place] [address] Care Team Providers Care Engineering Psychologist Name Role Phone Mariam Solorzano MD Unavailable [phone] Mariam Solorzano MD Primary Care Provider [phone] August, Mina Downey MD Unavailable [phone] Encounter Details Date Type Department Care Team (Latest Contact Info) Description 04/09/2025 Travel Social History Tobacco Use Types Packs/Day [...] Answer Date Recorded PHQ-2 Score 1 02/20/2025 [facility] [place] of Occupat ional Health - Occupational Stress [...] in an abandoned building, in an overnight senior care, or couch-surfing.) Yes 02/20/2025 Are you worried [...] on file 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 Gender Identity Not on file Sexual Orientation Not on file documented as of this encounter Plan of Treatment Not on file documented as of this encounter Visit Diagnoses Not on filedocumented in this encounter Care Teams Engineering Psychologist Relationship Specialty Start [place] [address] [place] [address] PCP - General Family Medicine 10/16/23 [place] [address] [place] [address] Assigned PCP 09/22/23AugustMina MD [address] [facility] [address] [place], [place] [address] Assigned Heart and Vascular Provider 10/23/23 documented as of this encounter
--- OUTSIDE RECORDS SUMMARY | 2025-04-25 02:29 | XMS_ITS | Encounter Summary ---
Author Organization [facility] Address [address] [place] [address]. [place] [address] Care Team Providers Care Diaper Folder Name Role Phone No Ref-Primary, Physician Primary Care Provider Mariam Solorzano MD Unavailable [phone] Mariam Solorzano MD Primary Care Provider [phone] August, Mina Downey MD Unavailable [phone] Encounter Details Date Type Department Care Team (Late st Contact Info) Description 09/13/2023 [facility] Medical Advice [facility] [address] [place] [address] Saloni Rocha Social History Tobacco Use Types Packs/Day Years Used Date Smoking Tobacco: Never Assessed PHQ-2 Answer Date Recorded PHQ-2 Score 0 08/31/2023 Adolescent Education Answer Date Record ed Getting School Help Needed Not on file 08/30 Food Insecurity Answer Date Recorded Within the past 12 months, d id you worry that your food would run out before you got money to buy more? No 08/31/2023 Within the past 12 months, d id the food you bought just not last and you didn t have money to get more? No 08/31/2023 Housing Stability Answer Date Recorded Do you have housing? (Housin g is defined as stable permanent housing and does not include staying outside in a car, in a tent, in an abandoned building, in an overnight fpc, or couch-surfing.) Yes 08/31/2023 Are you worried about losing your housing? No 08/31/2023 Financial Resource Strain Answer Date R ecorded Within the past 12 months, h ave you or your family members you live with been unable to get utilities (heat, electricity) when it was really needed? Yes 08/31/2023 Transportation Needs Answer Date Record ed Within the past 12 months, h as lack of transportation kept you from medical appointments, getting your medicines, non-medical meetings or appointments, work, or from getting things that you need? No 08/31/2023 Interpersonal Safety Answer Date Record ed Do you feel physically and e motionally safe where you currently live? Yes 08/31/2023 Within the past 12 months, h ave you been hit, slapped, kicked or otherwise physically hurt by someone? No 08/31/2023 Within the past 12 months, h ave you been humiliated or emotionally abused in other ways by your partner or ex-partner? 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 Gender Identity Not on file Sexual Orientation Not on file documented as of this encounter Plan of Treatment Not on file documented as of this encounter Visit Diagnoses Not on filedocumented in this encounter Additional Health Concerns Infection Onset Date Last Indicated Resolved Time Rule Out COVID-19 04/02/2025 04/02/2025 04/02/2025 6:39 PM CDT documented as of this encounter Care Teams Diaper Folder Relationship Specialty Start Date End Date No Ref-Primary, Physician PCP - General 09/03/23 10/15/23 [place] [address] [place] [address] PCP - General Family Medicine 10/16/23 [place] [address] [place] [address] Assigned PCP 09/22/23August, Mina Downey MD [address] [place] [address] [place] [address] Assigned Heart and Vascular Provider 10/23/23 documented as of this encounter
--- OUTSIDE RECORDS SUMMARY | 2025-04-25 02:29 | XMS_ITS | Encounter Summary ---
Author Organization [facility] Address [address] [place] [address]. [place] [address] [address] Team Prov[address] Care [address] Light Servicer Supervisor Name Role Phone Mariam Solorzano MD Unavailable [phone] Mariam Solorzano MD Primary Care Provider [phone] August, Mina Downey MD Unavailable [phone] Encounter Details Date Type Department Care Team (Late st Contact Info) Description 01/01/2024 [facility] [place] Advice [facility] [address] [place] [id number] Bibi Espinosa Social History Tobacco Use Types Packs/Day Years [...] or relatives? 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 Gender Identity Not on file Sexual Orientation Not on file documented as of this encounter Plan of Treatment Not on file documented as of this encounter Visit Diagnoses Not on filedocumented in this encounter Additional Health Concerns Infection Onset Date Last Indicated Resolved Time Rule Out COVID-19 04/02/2025 04/02/2025 04/02/2025 6:39 PM CDT documented as of this encounter Care Teams Street Light Servicer Supervisor Relationship Specialty Start [place] [address] [place] [address] PCP - General Family Medicine 10/16/23 [place] [address] [place] [address] Assigned PCP 09/22/23AugustMina MD [address] [facility] [address] [place] [address] Assigned Heart and Vascular Provider 10/23/23 documented as of this encounter
--- OUTSIDE RECORDS SUMMARY | 2025-04-25 02:29 | XMS_ITS | Encounter Summary ---
Author Organization [facility] Address [address] [place] [address]. [place] [address] Care Team Providers Care Rivet Bucker Name Role Phone Mariam Solorzano MD Unavailable [phone] Mariam Solorzano MD Primary Care Provider [phone] August, Mina Downey MD Unavailable [phone] Encounter Details Date Type Department Care Team (Late st Contact Info) Description 12/03/2023 [facility] Medical Advice [facility] [address] [place] [address] Mariam Lombardi, RN Social History Tobacco Use Types Packs/Day Years [...] or relatives? 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 Gender Identity Not on file Sexual Orientation Not on file documented as of this encounter Plan of Treatment Not on file documented as of this encounter Visit Diagnoses Not on filedocumented in this encounter Additional Health Concerns Infection Onset Date Last Indicated Resolved Time Rule Out COVID-19 04/02/2025 04/02/2025 04/02/2025 6:39 PM CDT documented as of this encounter Care Teams Rivet Bucker Relationship Specialty Start [place] [address] [place] [address] PCP - General Family Medicine 10/16/23 [place] [address] [place] [address] Assigned PCP 09/22/23 Mina Sotelo MD [address] [facility] [address] [place] [address] Assigned Heart and Vascular Provider 10/23/23 documented as of this encounter
--- OUTSIDE RECORDS SUMMARY | 2025-04-25 02:29 | XMS_ITS | Encounter Summary ---
Author Organization [facility] Address [address] [place] [address]. [place] [address] Care Team Providers Care Mixer Pigment Name Role Phone Mariam Solorzano MD Unavailable [phone] Mariam Solorzano MD Primary Care Provider [phone] August, Mina Downey MD Unavailable [phone] Encounter Details Date Type Department Care Team (Late st Contact Info) Description 04/02/2025 Results Follow-Up [facility] [place] [address] [address] Sue Feliciano, BUILDING CARPENTER [address] [place] [address] Subj: Message about your results Social History [...] Answer Date Recorded PHQ-2 Score 1 02/20/2025 [facility] [place] of Occupat ional Health - Occupational Stress [...] in an abandoned building, in an overnight long-term, or couch-surfing.) Yes 02/20/2025 Are you worried [...] on file 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 Gender Identity Not on file Sexual Orientation Not on file documented as of this encounter Plan of Treatment Not on file documented as of this encounter Visit Diagnoses Not on filedocumented in this encounter Additional Health Concerns Infection Onset Date Last Indicated Resolved Time Rule Out COVID-19 04/02/2025 04/02/2025 04/02/2025 6:39 PM CDT documented as of this encounter Care Teams Mixer Pigment Relationship Specialty Start [place] [address] [place] [address] PCP - General Family Medicine 10/16/23 [place] [address] [place] [address] Assigned PCP 09/22/23AugustMina MD [address] [facility] [address] [place], [place] [address] Assigned Heart and Vascular Provider 10/23/23 documented as of this encounter
--- OUTSIDE RECORDS SUMMARY | 2025-04-25 02:29 | XMS_ITS | Encounter Summary ---
Author Organization [facility] Address [facility] [place] [address] Care Team Providers Care Site Safety Coordinator Name Role Phone Mariam Solorzano MD Unavailable [phone] Mariam Solorzano MD Primary Care Provider [phone] August, Mina Downey MD Unavailable [phone] Encounter Details Date Type Department Care Team (Late st Contact Info) Description 04/09/2025 Results Follow-Up [address] [address] Andres Fishman APRN [address] [address] Subj: Message about your results Social [...] Answer Date Recorded PHQ-2 Score 1 02/20/2025 [facility] [place] of Occupat ional Health - Occupational Stress [...] in an abandoned building, in an overnight skilled nursing, or couch-surfing.) Yes 02/20/2025 Are you worried [...] on file 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 Gender Identity Not on file Sexual Orientation Not on file documented as of this encounter Plan of Treatment Not on file documented as of this encounter Visit Diagnoses Not on filedocumented in this encounter Care Teams Site Safety Coordinator Relationship Specialty Start [place] [address] [place] [address] PCP - General Family Medicine 10/16/23 [place] [address] [place] [address] Assigned PCP 09/22/23August, Mina Downey MD [address] [facility] [address] [place] [address] Assigned Heart and Vascular Provider 10/23/23 documented as of this encounter
--- OUTSIDE RECORDS SUMMARY | 2025-04-25 02:29 | XMS_ITS | Clinical Summary ---
Author Organization [facility] Address [address] [place] [address]. [place] [address] Care Team Providers Care Layaway Clerk Name Role Phone Mariam Solorzano MD Unavailable [phone] Mariam Solorzano MD Primary Care Provider [phone] AugustMina MD Unavailable [phone] Allergies No known active allergies Medications atorvastatin (LIPITOR) 20 MG tabletIndications: Hypercholesteremia Take 1 tablet (20 mg) by mouth daily. 90 tablet 3 02/21/20 25 Active hydrochlorothiazid e (HYDRODIURIL) 25 MG tabletIndications: Essential hypertension Take 1 tablet (25 mg) by mouth daily. 90 tablet 3 02/21/20 25 Active traZODone (DESYREL) 50 MG tabletIndications: Primary insomnia Take 1 tablet (50 mg) by mouth at bedtime. 90 tablet 3 02/21/20 25 Active albuterol (PROAIR HFA/PROVENTIL HFA/VENTOLIN HFA) 108 (90 Base) MCG/ACT inhalerIndications :Shortness of breath,Pneumonia of both lower lobes due to infectious organism Inhale 2 puffs into the lungs every 4 hours as needed. 18 g 04/02/20 25 025 Active semaglutide-weight management (WEGOVY) 0.25 MG/0.5ML pen 025 Discontinued amoxicillin (AMOXIL) 500 MG capsuleIndications :Pneumonia of both lower lobes due to infectious organism Take 1 capsule (500 mg) by mouth 3 times daily for 10 days. 30 capsule 04/02/20 25 025 azithromycin (ZITHROMAX) 250 MG tabletIndications: Pneumonia of both lower lobes due to infectious organism Take 2 tablets (500 mg) by mouth daily for 1 day, THEN 1 tablet (250 mg) daily for 4 days. 6 tablet 04/02/20 25 025 fluconazole (DIFLUCAN) 150 MG tabletIndications: History of candidal vulvovaginitis Take 1 tablet (150 mg) by mouth once for 1 dose. 1 tablet 04/02/20 25 025 predniSONE (DELTASONE) 20 MG tabletIndications: Acute cough Take 2 tablets (40 mg) by mouth daily for 5 days. 10 tablet 04/09/20 25 025 Hospital, Clinic, or Other Facility Administered Medication Ordered Dose Route Frequency Start Date End Date Status albuterol (PROVENTIL) neb solution 2.5 mgIndications:Acute cough,Shortness of breath 2.5 mg NEBULIZATION ONCE 04/02/2025 04/02/2025 Ended Active Problems Problem Noted Date Diagnosed Date Class 2 severe obesity due t o excess calories with serious comorbidity and body mass index (BMI) of 35.0 to 35.9 in adult 10/16/2023 Hypercholesteremia 10/16/2023 Essential hypertension 10/16/2023 Resolved Problems Problem Noted Date Diagnosed Date Resolved Date Primary hypertension 10/16/2023 024 Mixed hyperlipidemia 10/16/2023 024 Encounters Date Type Department Care Team Description 04/25/2025 Travel 04/09/2025 9:30 AM CDT Office Visit [facility] [id number] [place] [phone] Andres Fishman APRN CHECKERING MACHINE OPERATOR Acute cough (Primary Dx) 04/09/2025 Results Follow-Up [facility] [id number] [place] [phone] Andres Fishman APRN CHECKERING MACHINE OPERATOR Subj: Message about your results 04/09/2025 Travel 04/02/2025 1:20 PM CDT Ancillary Procedure [address] [phone] Sue Feliciano CNP Acute cough; Acute intractable headache, unspecified headache type; Shortness of breath 04/02/2025 12:40 PM CDT Office Visit [address] [phone] Sue Feliciano CNP Pneumonia of both lower lobes due to infectious organism (Primary Dx); Acute cough; Acute intractable headache, unspecified headache type; Shortness of breath; History of candidal vulvovaginitis 04/02/2025 Results Follow-Up [address] [phone] Sue Feliciano CNP Subj: Message about your results 04/02/2025 Travel 02/23/2025 Results Follow-Up [address] [phone] Mariam Solorzano MD Subj: Message about your results 02/20/2025 7:00 AM CDT Office Visit [address] [phone] Mariam Solorzano MD Routine general medical examination at a health care facility (Primary Dx); Cervical cancer screening; Essential hypertension; Hypercholesteremia; Primary insomnia; Asymptomatic menopause 02/20/2025 Travel from Last 3 Months Immunizations Immunization Administration Dates Next Due COVID-19 Monovalent 18+ (Moderna) 12/12/2020,05/2021 TDAP (Adacel,Boostrix) 07/08/2019 Family History Medical History Relation Comments Coronary Artery Disease Father Colon Cancer No family hx of Relation Status Comments Father Social History Tobacco Use Types Packs/Day Years Used Date Smoking Tobacco: Never Passive Smoke Exposure: Never Smokeless Tobacco: Never Tobacco Cessation:Counseling Given: Not Answered Alcohol Use Standard Drinks/Week Comments Yes 0 (1 standard drink = 0.6 oz pur e alcohol) occasional AUDIT-C Answer Date Recorded Q1: How often do you have a drink containing alc ohol? 2-4 times a month 10/16/2023 Average Number of Drinks Not on file 024 Frequency of Binge Drinking Not on file 09/30 PHQ-2 Answer Date Recorded PHQ-2 Score 1 02/20/2025 [facility] - [...] in an abandoned building, in an overnight long term, or couch-surfing.) Yes 02/20/2025 Are you worried [...] on file Legal Sex Female 4:26 AM RN ORTHOPAEDICS Gender Identity Not on file Sexual Orientation Not on file Last Filed Vital Signs Vital Sign Reading [...] Mass Index 26.4 04/09/2025 9:06 AM CDT Plan of Treatment Health Maintenance Due Date Last Done Comments CT COLONOGRAPHY 1965 FIT 1965 FLEX SIG 1965 sDNA (Cologuard) 1965 PNEUMOCOCCAL VACCINE 50+ YEARS (1 of 1 - PCV) 2015 ZOSTER VACCINE (1 of 2) 2015 COVID-19 VACCINE (3 - season) 2025 12/12/2020, 11/09/2020 INFLUENZA VACCINE (#1) 2025 MAMMO SCREENING 09/02/2025 09/03/2023 ANNUAL REVIEW OF HM ORDERS 12/02/2025 12/02/2024, BMP 02/20/2026 02/20/2025, 08/31/2023 LIPID 02/20/2026 02/20/2025, 01/30, 08/31/2023 YEARLY PREVENTIVE VISIT 02/20/2026 02/20/2025, 10/15 DIABETES SCREENING 02/21/2028 02/20/2025, 0 02/20/2025, 08/31/2023, Additional history exists DTAP/TDAP/TD VACCINE (2 - Td or Tdap) 07/08/2029 07/08/2019 ADVANCE CARE PLANNING 02/20/2030 02/20/2025, 024 HPV TEST 02/20/2030 02/20/2025, 07/03, 07/30/2020 PAP 02/20/2030 02/20/2025, 01/31, 07/30/2020, Additional history exists COLONOSCOPY 12/12/2033 12/13/2023, 12/13/2023 COLORECTAL CANCER SCREENING 12/12/2033 RSV VACCINE (1 - 1-dose 75+ series) 01/13/2040 PHQ-2 (once per calendar year) Completed 02/20/2025, 12/02/2024, 10/16/2023, Additional history exists HEPATITIS C SCREENING Discontinued HIV SCREENING Discontinued HPV VACCINE (No Doses Required) Completed MENINGITIS VACCINE Aged Out No longer eligible based on patient's age to complete this topic Procedures Procedure Name Priority Date/Time Associated Diagnosis Comments CBC WITH PLATELETS & DIFFERENTIAL Routine 04/09/2025 9:45 AM CDT Acute cough CBC WITH PLATELETS AND DIFFERENTIAL Routine 04/09/2025 9:45 AM CDT Acute cough XR CHEST 2 VIEWS STAT 04/02/2025 1:30 PM CDT Acute cough Acute intractable headache, unspecified headache type Shortness of breath COVID-19 VIRUS (CORONAVIRUS) BY PCR Routine 04/02/2025 1:21 PM CDT Acute cough Shortness of breath CBC WITH PLATELETS & DIFFERENTIAL Routine 04/02/2025 1:20 PM CDT Acute cough Acute intractable headache, unspecified headache type Shortness of breath CBC WITH PLATELETS AND DIFFERENTIAL Routine 04/02/2025 1:20 PM CDT Acute cough Acute intractable headache, unspecified headache type Shortness of breath D DIMER QUANTITATIVE STAT 04/02/2025 1:20 PM CDT Acute cough Shortness of breath HEMOGLOBIN A1C Routine 02/20/2025 7:35 AM CDT Routine general medical examination at a [facility] CBC WITH PLATELETS Routine 02/20/2025 7: 35 AM CDT Routine general medical examination at a [facility] TSH WITH FREE T4 REFLEX Routine 02/20/2025 7:35 AM CDT Routine general medical examination at a [facility] COMPREHENSIVE METABOLIC PANEL Routine 02/20/2025 7:35 AM CDT Essential hypertension Hypercholesteremia LIPID REFLEX TO DIRECT LDL PANEL Routine 02/20/2025 7:35 AM CDT Hypercholesteremia HPV AND GYNECOLOGIC CYTOLOGY PANEL Routine 02/20/2025 7:19 AM CDT Cervical cancer screening GYNECOLOGIC CYTOLOGY Routine 02/20/2025 7:19 AM CDT Cervical cancer screening COLONOSCOPY Routine 12/13/2023 9:31 AM CDT MA SCREENING BILATERAL W/ DIEGO Routine 09/03/2023 3:28 PM RN ORTHOPAEDICS Visit for screening mammogram from Last 3 Months or Most Recently Relevant to Health Maintenance Results * (ABNORMAL) CBC with platelets and differential (04/09/2025 9:45 AM CDT) Only the most recent of2 resultswithin the time period is included. WBC Count 5.98 4.00 - 11.00 10e3/uL [...] 9:45 AM CDT 04/09/2025 9:45 AM CDT Andres Fishman APRN CHECKERING MACHINE OPERATOR LAB - BLOOD ORDERABLES Fin al Result [facility] LAB[facility]ATORY [facility] [address] [facility] (no room number, 1st floor of clinic) [place] [address], [facility] * XR Chest 2 Views (04/02/2025 1:30 [...] CDT EXAM: XR CHEST 2 VIEWS LOCATION: [facility] DATE: 04/02/2025 INDICATION: Acute cough, shortness of breath COMPARISON: None. Procedure Note Clifton Carranza MD - 04/02/2025 EXAM: XR CHEST 2 VIEWS LOCATION: [facility] DATE: 04/02/2025 INDICATION: Acute cough, shortness of breath COMPARISON: None. IMPRESSION: Right lower lobe consolidation, suspicious for infection.Additional patchy opacity in the left lower lung, which may represent anadditional area of infection versus atelectasis. No pleural effusion orpneumothorax. Cardiac silhouette and mediastinal contours are normal. Sue Feliciano CHECKERING MACHINE OPERATOR IMG DIAGNOSTIC IMAGING ORDER DIVYA Final Result * [...] using the Aptima SARS-CoV-2 Assay on the [employer] Instrument System. This [place] FDA cleared test [...] COVID-19. This test was validated by the [facility]. This laboratory is certified under the Clinical Laboratory Improvement Amendments of 1988 (CLIA-88) as qualified to perform high complexity laboratory testing. Sue Feliciano [facility] LAB - MICRO GENERAL ORDERABL ES Final Result [facility] IDD [facility]ORAT[facility] Inf. Diseases Diag. Lab [address] [facility], [address] [place] [address] * (ABNORMAL) D dimer quantitative (04/02/2025 1:20 [...] out pulmonary embolism: The ADJUST-PE Study. RICARDO 2014;311:7259-4226.; HJ Henry et al. Diagnostic accuracy of conventional or age adjusted D-dimer cutoff values in older patients with suspected venous thromboembolism. Systemic review and meta-analysis. BMJ 2013:346:f2492. us Sue Feliciano CNP LAB - BLOOD ORDERABLES Final Result LABORATORY [facility] [address] Lab (no room number, 1st floor of clinic) [place] [address] * TSH with free T4 reflex (02/20/2025 7:35 AM CDT) TSH 1.28 0.30 - 4.20 uIU/mL 02/20/2025 4:28 PM CDT [facility] Blood BLOOD SPECIMEN / Unknown Venipuncture / Unknown 02/20/2025 7:35 AM CDT 02/20/2025 7:38 AM CDT us Mariam Solorzano MD LAB - BLOOD ORDERABLES Fi nal Result U [facility]ORY [facility] [address] [facility], [address] [place] [address] * Lipid panel reflex to direct LDL Fasting (02/20/2025 7:35 AM CDT) Cholesterol 162 <200 mg/dL 02/20/2025 4:28 PM CDT [facility] Triglycerides 81 <150 mg/dL 02/20/2025 4:28 PM CDT [facility] Direct Measure HDL 77 >=50 mg/dL 2024 4:28 PM CDT [facility] LDL Cholesterol Calculated 69 <100 mg/dL 02/20/2025 4:28 PM CDT [facility] Comment:LDL calculated using the Friedewald equation. Non HDL Cholesterol 85 <130 mg/dL 02/20/2025 4:28 PM CDT [facility] Patient Fasting > 8hrs? Yes 02/20/2025 4:28 PM CDT [facility] Blood BLOOD SPECIMEN / Unknown Venipuncture / Unknown 02/20/2025 7:35 AM CDT 02/20/2025 7:38 AM CDT Narrative [facility] - 02/20/2025 4:28 PM CDT Cholesterol Desirable: < 200 mg/dL Borderline High: 200 - 239 mg/dL High: >= 240 mg/dL Triglycerides Normal: < 150 mg/dL Borderline High: 150 - 199 mg/dL High: 200-499 mg/dL Very High: >= 500 mg/dL Direct Measure HDL Female: >= 50 mg/dL Male: >= 40 mg/dL LDL Cholesterol Desirable: < 100 mg/dL Above Desirable: 100 - 129 mg/dL Borderline High: 130 - 159 mg/dL High: 160 - 189 mg/dL Very High: >= 190 mg/dL Non HDL Cholesterol Desirable: < 130 mg/dL Above Desirable: 130 - 159 mg/dL Borderline High: 160 - 189 mg/dL High: 190 - 219 mg/dL Very High: >= 220 mg/dL us Mariam Solorzano MD LAB - BLOOD ORDERABLES Fi nal Result [facility] [address] [facility], [address] [place] [address], [facility] * Hemoglobin A1c (02/20/2025 7:35 AM CDT) Estimated Average Glucose 88 <117 mg/dL 02/20/2025 7:47 AM CDT LV LAB[facility]ATORY Hemoglobin A1C 4.7 0.0 - 5.6 % 02/20/2025 7:47 AM CDT [facility] LAB[facility] Comment: Normal <5.7% Prediabetes 5.7-6.4% Diabetes 6.5% or higher Note: Adopted from ADA consensus guidelines. Blood BLOOD SPECIMEN / Unknown Venipuncture / Unknown 02/20/2025 7:35 AM CDT 02/20/2025 7:38 AM CDT us Mariam Solorzano MD LAB - BLOOD ORDERABLES Fi nal Result LV LAB[facility]AT[facility] [address] [facility] Lab (no room number, 1st floor of clinic) [place] [address], [facility] * Comprehensive metabolic panel (02/20/2025 7:35 AM CDT) Sodium 141 135 - 145 mmol/L 02/20/2025 4:28 PM CDT [facility] Potassium 4.7 3.4 - 5.3 mmol/L 02/20/2025 4:28 PM CDT [facility] Carbon Dioxide (CO2) 26 22 - 29 mmol/L 02/20/2025 4:28 PM CDT [facility] Anion Gap 11 7 - 15 mmol/L 02/20/2025 4:28 PM CDT [facility] Urea Nitrogen 20.5 8.0 - 23.0 mg/dL 02/20/2025 4:28 PM CDT [facility] Creatinine 0.79 0.51 - 0.95 mg/dL 02/20/2025 4:28 PM CDT [facility] GFR Estimate 85 >60 mL/min/1.7 3m2 02/20/2025 4:28 PM CDT [facility] Comment:eGFR calculated 2020 CKD-EPI equation. Calcium 10.1 8.8 - 10.4 mg/dL 02/20/2025 4:28 PM CDT [facility] Chloride 104 98 - 107 mmol/L 02/20/2025 4:28 PM CDT [facility] Glucose 95 70 - 99 mg/dL 02/20/2025 4:28 PM CDT [facility] Alkaline Phosphatase 48 40 - 150 U/L 02/20/2025 4:28 PM CDT [facility] AST 26 0 - 45 U/L 02/20/2025 4:28 PM CDT [facility] ALT 25 0 - 50 U/L 02/20/2025 4:28 PM CDT [facility] Protein Total 7.3 6.4 - 8.3 g/dL 02/20/2025 4:28 PM CDT [facility] Albumin 4.5 3.5 - 5.2 g/dL 02/20/2025 4:28 PM CDT [facility] Bilirubin Total 0.5 <=1.2 mg/dL 02/20/2025 4:28 PM CDT [facility] Patient Fasting > 8hrs? Yes 02/20/2025 4:28 PM CDT [facility] Blood BLOOD SPECIMEN / Unknown Venipuncture / Unknown 02/20/2025 7:35 AM CDT 02/20/2025 7:38 AM CDT us Mariam Solorzano MD LAB - BLOOD ORDERABLES Fi nal Result [facility] [address] [facility], [address] [place] [address] * CBC with platelets (02/20/2025 7:35 AM CDT) WBC Count 6.93 4.00 - 11.00 10e3/uL 02/20/2025 7:40 AM CDT [facility] LAB[facility] RBC Count 5.06 3.80 - 5.20 10e6/uL 02/20/2025 7:40 AM CDT [facility] Hemoglobin 14.6 11.7 - 15.7 g/dL 02/20/2025 7:40 AM CDT [facility] Hematocrit 43.7 35.0 - 47.0 % 02/20/2025 7:40 AM CDT [facility] LAB[facility] MCV 86.4 78.0 - 100.0 fL 02/20/2025 7:40 AM CDT [facility] LAB[facility] MCH 28.9 26.5 - 33.0 pg 02/20/2025 7:40 AM CDT LV LAB[facility] MCHC 33.4 31.5 - 36.5 g/dL 02/20/2025 7:40 AM CDT LABORATORY RDW 12.4 10.0 - 15.0 % 02/20/2025 7:40 AM CDT LABORATORY Platelet Count 284 150 - 450 10e3/uL 02/20/2025 7:40 AM CDT LABORATORY Blood BLOOD SPECIMEN / Unknown Venipuncture / Unknown 02/20/2025 7:35 AM CDT 02/20/2025 7:38 AM CDT us Mariam Solorzano MD LAB - BLOOD ORDERABLES Fi nal Result LABORATORY [facility] [address] [facility] (no room number, 1st floor of clinic) [place] [address], [facility] * HPV and Gynecologic Cytology Panel - Recommended Age 30 - 65 Years (02/20/2025 7:19 AM CDT) Human Papilloma Virus 16 DNA Negative Negative 02/23/2025 12:23 PM CDT [facility] Human Papilloma Virus 18 DNA Negative Negative 02/23/2025 12:23 PM CDT [facility] Human Papilloma Virus Other Negative Negative 02/23/2025 12:23 PM CDT [facility] FINAL DIAGNOSIS This patient's sample is negative for high risk HPV DNA. METHODOLOGY: The [employer] system uses automated extraction, simultaneous amplification of HPV (E6/E7 oncogenes) and beta-globin, followed by real time detection of fluorescent labeled HPV and beta globin using specific oligonucleotide probes. The test specifically identifies types HPV 16 DNA and HPV 18 DNA while concurrently detecting the rest of the high risk types (31, 33, 35, 39, 45, 51, 52, 56, 58, 59, 66 or 68). COMMENTS: This test is not intended for use as a screening device for woman under age 30 with normal cervical cytology. Results should be correlated with cytologic and histologic findings. Close clinical follow up is recommended. Please see the separate Gynecologic Cytology (Pap) report from the same collection date. 02/23/2025 12:23 PM CDT MOLECULAR DIAGNOSTICS Brushing ENDOCERVICAL STRUCTURE / Unknown Non-blood Collection / Unknown 02/20/2025 7:19 AM CDT 02/20/2025 8:21 AM CDT Mariam Solorzano MD LAB - BLOOD ORDERABLES Fi nal Result [facility] Specialty Lab [address] [facility] [address] Building, [address] [phone], [facility] MOLECULAR DIAGNOSTICS Molecular Diagnostics [address] [facility] [address] [facility], [address] [place] [phone], [facility] * Gynecologic Cytology (PAP) (02/20/2025 7:19 AM CDT) Interpretation Negative for Intraepithelial Lesion or Malignancy (NILM) 02/25/2025 9:14 AM CDT [facility] at 0914 CDT Comment Papanicolaou Test Limitations: Cervical cytology is a screening test with limited sensitivity, and regular screening is critical for cancer prevention. Pap tests are primarily effective for the diagnosis/prevent ion of squamous cell carcinoma, not adenocarcinoma or other cancers. 02/25/2025 9:14 AM CDT [facility] Specimen Adequacy Satisfactory for evaluation, endocerv/transfor mation zone component absent, atrophy 02/25/2025 9:14 AM CDT [facility] Clinical Information none 02/25/2025 9:14 AM CDT [facility] Previous Abnormal? No 02/25/2025 9:14 AM CDT [facility] Performing Labs The technical component of this testing was completed at [facility]. Stain controls for all stains resulted within this report have been reviewed and show appropriate reactivity. 02/25/2025 9:14 AM CDT [facility] Associated HPV Report Please see the associated HPV High Risk Types DNA Cervical report for Specimen [id number] from the same collection date. 02/25/2025 9:14 AM CDT [facility] Brushing ENDOCERVICAL STRUCTURE / Unknown Non-blood Collection / Unknown 02/20/2025 7:19 AM CDT 02/20/2025 2:40 PM CDT us Mariam Solorzano MD LAB - BECAMRON AP Final Res ult [facility] Specialty Lab [address] [facility] [address] Building, [address] [place] [address], [facility] * COLONOSCOPY (12/13/2023 9:31 AM CDT) COLONOSCOPY [facility] Patient Name: Mariam NgMelanie Thompson Procedure Date: 12/13/2023 9:31 AM Date of : 1965 Admit Type: Outpatient Age: 58 Gender: Female Attending MD: MEGAN SEBASTIAN MD, Total Sedation Time: 16_minutes continuous bedside 1:1 Instrument Name: 252 - Pediatric Colonoscope Procedure: Colonoscopy Indications: Screening for colorectal malignant neoplasm Providers: MEGAN SEBASTIAN MD (Doctor) Referring MD: MARIAM SOLORZANO MD (Referring MD) Medicines: Midazolam 2 mg IV, Fentanyl 100 micrograms IV Complications: No immediate complications. Procedure: Pre-Anesthesia Assessment: - Prior to the procedure, a History and Physical was performed, and patient medications and allergies were reviewed. The patient is competent. The risks and benefits of the procedure and the sedation options and risks were discussed with the patient. All questions were answered and informed consent was obtained. Patient identification and proposed procedure were verified by the physician in the procedure room. Mental Status Examination: alert and oriented. Airway Examination: normal oropharyngeal airway and neck mobility. Respiratory Examination: clear to auscultation. CV Examination: normal. Prophylactic Antibiotics: The patient does not require prophylactic antibiotics. Prior Anticoagulants: The patient has taken no anticoagulant or antiplatelet agents. ASA Grade Assessment: II - A patient with mild systemic disease. After reviewing the risks and benefits, the patient was deemed in satisfactory condition to undergo the procedure. The anesthesia plan was to use moderate sedation / analgesia (conscious sedation). Immediately prior to administration of medications, the patient was re-assessed for adequacy to receive sedatives. The heart rate, respiratory rate, oxygen saturations, blood pressure, adequacy of pulmonary ventilation, and response to care were monitored throughout the procedure. The physical status of the patient was re-assessed after the procedure. After obtaining informed consent, the colonoscope was passed under direct vision. Throughout the procedure, the patient's blood pressure, pulse, and oxygen saturations were monitored continuously. The Olympus Pediatric Colonoscope Model # [id number], Censitrac # [id number] was introduced through the anus and advanced to the terminal ileum, with identification of the appendiceal orifice and IC valve. The colonoscopy was performed without difficulty. The patient tolerated the procedure well. The quality of the bowel preparation was good. The ileocecal valve, appendiceal orifice, and rectum were photographed. Findings: The perianal and digital rectal examinations were normal. A single small-mouthed diverticulum was found in the sigmoid colon. The exam was otherwise without abnormality on direct and retroflexion views. The terminal ileum appeared normal. Impression: - Diverticulosis. - The examination was otherwise normal on direct and retroflexion views. - No specimens collected. Recommendation: - Repeat colonoscopy in 10 years for screening purposes. Procedure Code(s): --- Professional --- G0121, Colorectal cancer screening; colonoscopy on individual not meeting criteria for high risk Diagnosis Code(s): --- Professional --- Z12.11, Encounter for screening for malignant neoplasm of colon CPT copyright 2021 [employer]. All rights reserved. The codes documented in this report are preliminary and upon engineering job titles review may be revised to meet current compliance requirements. Electronically signed by Megan Sebastian MD __ MEGAN SEBASTIAN MD 12/13/2023 9:55:56 AM I was physically present for the entire viewing portion of the exam. MEGAN SEBASTIAN MD Number of Addenda: 0 Note Initiated On: 12/13/2023 9:31 AM Procedure Date: 12/13/2023 9:31:33 AM Scope Withdrawal Time: 0 hours 6 minutes 26 seconds Total Procedure Duration: 0 hours 13 minutes 1 second Estimated Blood Loss: Scope In: 9:36:58 AM Scope Out: 9:49:59 AM RADIOLOGY RESULTS 12/13/2023 9:31 AM CDT us Mariam Solorzano MD PROCEDURES Final Res ult RADIOLOGY RESULTS * MA Screen Bilateral w/Diego (09/03/2023 3:28 PM RN ORTHOPAEDICS) Anatomical Region Laterality Modality Breast Bilateral Mammography Impressions 09/05/2023 3:14 PM RN ORTHOPAEDICS IMPRESSION: ACR BI-RADS Category 1: Negative BREAST CANCER SCREENING RECOMMENDATION: Routine yearly mammography beginning at age 40 or as discussed with your provider. The results and recommendations of this examination will be communicated to the patient. Michael Lundy MD Narrative 09/05/2023 3:14 PM RN ORTHOPAEDICS BILATERAL FULL FIELD DIGITAL SCREENING MAMMOGRAM WITH TOMOSYNTHESIS Performed on: 09/03/23 No comparisons were made when reading this study. Technique: This study was evaluated with the assistance of Computer-Aided Detection. Breast Tomosynthesis was used in interpretation. Findings: The breasts have scattered areas of fibroglandular density. There is no radiographic evidence of malignancy. us Kyree Mcadams MD IMG MAMMOGRAPHY ORDERAB LES Final Result from Last 3 Months or Most Recently Relevant to Health Maintenance Insurance MEDICA CHOICE MEDICA CHOICE Care Teams Layaway Clerk Relationship Specialty [place] [address] [place] [address] PCP - General Family Medicine 10/16/23 [place] [address] [place] [address] Assigned PCP 09/22/23August, Mina Downey MD [address] [facility] [address] [place] [address] Assigned Heart and Vascular Provider 10/23/23
--- OUTSIDE RECORDS SUMMARY | 2025-04-25 02:29 | XMS_ITS | Encounter Summary ---
Author Organization [place] Address [address] [place] [address]. [place] [address] Care Team Providers Care Scrap Metal Processing Worker Name Role Phone Mariam Solorzano MD Unavailable [phone] Mariam Solorzano MD Primary Care Provider [phone] August, Mina Downey MD Unavailable [phone] Reason for Visit * Reason Onset Date Comments Refill Request 12/18/2023 Encounter Details Date Type Department Care Team (Late st Contact Info) Description 12/18/2023 MyC Refill [facility] [id number] [place] [id number] [place]am [place]zano [place] [id number] [place] [address] Refill Request Social History Tobacco Use Types Packs/Day Years [...] or relatives? Once a week 10/16/2023 Attends Synagogue Services Not on file 10/15 Do you belong to any clubs o r organizations such as pentecostal groups, unions, fraternal or athletic groups, or [...] Answer Date Recorded PHQ-2 Score 0 10/16/2023 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 Gender Identity Not on file Sexual Orientation Not on file documented as of this encounter Plan of Treatment Not on file documented as of this encounter Visit Diagnoses Diagnosis Class 2 severe obesity due to excess calories with serious comorbidity and body mass index (BMI) of 35.0 to 35.9 in adult documented in this encounter Additional Health Concerns Infection Onset Date Last Indicated Resolved Time Rule Out COVID-19 04/02/2025 04/02/2025 04/02/2025 6:39 PM CDT documented as of this encounter Care Teams Scrap Metal Processing Worker Relationship Specialty [place] [address] [place] [address] PCP - General Family Medicine 10/16/23 [place] [address] [place] [address] Assigned PCP 09/22/23 Mina Sotelo MD [address] [facility] [address] [place] [address] Assigned Heart and Vascular Provider 10/23/23 documented as of this encounter
--- OUTSIDE RECORDS SUMMARY | 2025-04-25 02:29 | XMS_ITS | Encounter Summary ---
Author Organization [place] Address [address] [place] [address]. [place] [address] Care Team Providers Care Access Liaison Name Role Phone Mariam Solorzano MD Unavailable [phone] Mariam Solorzano MD Primary Care Provider [phone] August, Mina Downey MD Unavailable [phone] Encounter Details Date Type Department Care Team (Late st Contact Info) Description 11/15/2023 [facility] Advice [facility] [address] [place] [address] Sanam Warner, RN Social History Tobacco Use Types Packs/Day [...] or relatives? Once a week 10/16/2023 Attends Worship Services Not on file 10/15 Do you belong to any clubs o r organizations such as jain groups, unions, fraternal or athletic groups, or [...] Recorded PHQ-2 Score 0 10/16/2023 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 Gender Identity Not on file Sexual Orientation Not on file documented as of this encounter Plan of Treatment Not on file documented as of this encounter Visit Diagnoses Not on filedocumented in this encounter Additional Health Concerns Infection Onset Date Last Indicated Resolved Time Rule Out COVID-19 04/02/2025 04/02/2025 04/02/2025 6:39 PM CDT documented as of this encounter Care Teams Access Liaison Relationship Specialty [place] [address] [place] [address] PCP - General Family Medicine 10/16/23 [place] [address] [place] [address] Assigned PCP 09/22/23 Mina Sotelo MD [address] [facility] [address] [place] [address] Assigned Heart and Vascular Provider 10/23/23 documented as of this encounter
--- OUTSIDE RECORDS SUMMARY | 2025-04-25 02:30 | XMS_ITS | Encounter Summary ---
Author Organization [place] Address [address] [place] [address]. [place] [address] Care Team Providers Care Printed Circuit Board Layout Designer Name Role Phone Mariam Solorzano MD Unavailable [phone] Mariam Solorzano MD Primary Care Provider [phone] August, Mina Downey MD Unavailable [phone] Encounter Details Date Type Department Care Team (Latest Contact Info) Description 04/02/2025 Travel Social History Tobacco Use Types Packs/Day [...] Answer Date Recorded PHQ-2 Score 1 02/20/2025 [facility] - Occupational Stress [...] in an abandoned building, in an overnight usp, or couch-surfing.) Yes 02/20/2025 Are you worried [...] on file 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 Gender Identity Not on file Sexual Orientation Not on file documented as of this encounter Plan of Treatment Not on file documented as of this encounter Visit Diagnoses Not on filedocumented in this encounter Additional Health Concerns Infection Onset Date Last Indicated Resolved Time Rule Out COVID-19 04/02/2025 04/02/2025 04/02/2025 6:39 PM CDT documented as of this encounter Care Teams Printed Circuit Board Layout Designer Relationship Specialty [place] [address] [place] [address] PCP - General Family Medicine 10/16/23 [place] [address] [place] [address] Assigned PCP 09/22/23AugustMina MD [address] [facility] [address] [place] [address] Assigned Heart and Vascular Provider 10/23/23 documented as of this encounter
--- NOTE | 2025-04-25 02:32 | ED_ITS ---
HPI - General Adult General Time Seen by Provider: 02:33 Date Seen: 04/25/25 Chief complaint: Abdominal Pain Stated complaint: Abdominal pain Time Seen by Provider: 04/25/25 02:32 Source: patient and family Mode of arrival: ambulatory Limitations: no limitations History of Present Illness HPI narrative: 60-year-old female who comes in today with abdominal pain. Patient with abrupt onset right lower quadrant abdominal pain just prior to coming the emergency department. Accompanied by nausea vomiting. Pain is constant, worse with hitting bumps and with movement. Is radiating into the back little bit. Prior , no other abdominal surgeries. Last solids about 6:00 p.m., last liquid about 8:00 p.m.. Related Data Home Medications ?Medication ?Instructions ?Recorded ?Confirmed albuterol sulfate 90 mcg/actuation 2 puff inhalation Q 4H PRN 04/25/25 04/25/25 aerosol inhaler atorvastatin 20 mg tablet 20 mg PO DAILY 04/25/2504/02 hydrochlorothiazide 25 mg tablet 25 mg PO DAILY 04/25/25 trazodone 50 mg tablet 50 mg PO QPM 04/25/25 Allergies Allergy/AdvReac Type Severity Reaction Status Date / Time No Known Drug Allergies Allergy Verified 04/25/25 04:05 [facility] Social History Smoking Status: Never smoker Do you use any of these nicotine containing products: None How often do you have a drink containing alcohol: 2-3 times a week How many standard drinks containing alcohol do you have on a typical day: 3 or 4 How often do you have six or more drinks on one occasion: Less than monthly AUDIT-C Alcohol total score: 5 Non-prescribed substance use: denies use service: No Exam Narrative: Exam Narrative: General: Well-developed and well-nourished, no acute distress Head: Atraumatic and normocephalic Eyes: Pupils are equal reactive, extraocular motions intact, conjunctiva clear ENT: External nose and ears are normal, posterior pharynx without erythema or exudate Neck: No midline cervical tenderness, full spontaneous range of motion the neck, trachea midline, no adenopathy Heart: Regular rate and rhythm no murmurs or thrills Lungs: Clear to auscultation bilaterally without wheezes or crackles Abdomen: Soft, right-sided abdominal tenderness worse in the right lower quadrant, nondistended with active bowel sounds Musculoskeletal: No tenderness, deformity, or edema Neurologic: Awake, alert, and oriented x3, no gross focal neurologic deficits, cranial nerves intact as tested Psych: Mood and affect are appropriate Skin: No rashes Const: Vital Signs, click to edit/add: Vital Signs - 24 hr 04/25/25 02:37 04/25/25 05:00 Temperature 98.1 F 97.2 F L Pulse Rate [Pulse Oximeter] 72 67 Respiratory Rate 16 21 Blood Pressure [Le ft Upper Arm] 154/98 H 146/78 H Pulse Oximetry 96 96 Oxygen Delivery Me thod Room Air Room Air Course Course ED Course: Reviewed most recent primary care offices of from April 09 which was follow- up for cough, patient previously been diagnosed with pneumonia and treated with azithromycin and amoxicillin. Patient presents today with right lower quadrant abdominal pain, abrupt onset about an hour prior to coming emergency department, accompanied by nausea vomiting. On exam vital is stable, right lower quadrant tenderness. Pain does radiate into the back, considering abrupt onset, kidney stone possible co location could be consistent with acute appendicitis but abrupt onset is atypical. Ovarian pathology possible but a little less likely given age. Labs and CT scan are ordered along with Dilaudid and Zofran. Reevaluation(s) Time of Reevaluation #1: 03:08 Reevaluation #1: Labs independently interpreted by me with normal CBC. CT independently interpreted by me with infiltrate in the right lung base consistent with recently treated pneumonia, large attic cystic mass, distended gallbladder, mild right hydronephrosis, no evidence acute appendicitis, complex cyst on the right ovary with some free fluid in the pelvis, likely ruptured ovarian cyst versus to rsion. Time of Reevaluation #2: 03:42 Reevaluation #2: Reviewed radiology interpretation of CT scan which agrees with my initial interpretation, patient rechecked and still having quite a bit of pain although looks more comfortable. She has received Dilaudid 1 mg plus Toradol 15 mg. Ultrasound ordered to evaluate for torsion, discussed possible need for surgery with patient. NPO starting now. Time of Reevaluation #3: 05:45 Reevaluation #3: Care discussed with Dr. Olea, roughener. Requests add-on tumor markers and plan for surgery. Vital Signs Vital signs: Initial Vital Signs Temperature 98.1 F 04/25/25 02:37 Temperature Source Temporal Artery Scan 04/25/25 02:37 Pulse Rate 72 04/25/25 02:37 Respiratory Rate 16 04/25/25 02:37 Blood Pressure 154/98 H 04/25/25 02:37 Blood Pressure Mean 116 H 04/25/25 02:37 Blood Pressure Position Sitting 04/25/25 02:37 Pulse Oximetry 96 04/25/25 02:37 Oxygen Delivery Method Room Air 04/25/25 02:37 Vital Signs Temperature 98.1 F 04/25/25 02:37 Pulse Rate 72 04/25/25 02:37 Respiratory Rate 16 04/25/25 02:37 Blood Pressure 154/98 H 04/25/25 02:37 Pulse Oximetry 96 04/25/25 02:37 Oxygen Delivery Method Room Air 04/25/25 02:37 Temperature 97.2 F L 04/25/25 05:00 Pulse Rate 67 04/25/25 05:00 Respiratory Rate 21 04/25/25 05:00 Blood Pressure 146/78 H 04/25/25 05:00 Pulse Oximetry 96 04/25/25 05:00 Oxygen Delivery Method Room Air 04/25/25 05:00 Medications Administered Medications: Generic Name Dose Route Start Last Admin Trade Name Freq PRN Reason Stop Dose Admin Fentanyl 50 mcg 04/25/25 05:51 04/25/25 05:58 Fentanyl 100 Mcg/2 Ml Inj IVP 50 mcg Q5M PRN Administration Moderate Pain Hydromorphone HCl 0.5 mg 04/25/25 03:13 04/25/25 03:23 Hydromorphone 0.5 Mg/0.5 Ml Inj IVP 0.5 mg Q1H PRN Administration Pain Discontinued Medications Generic Name Dose Route Start Last Admin Trade Name Freq PRN Reason Stop Dose Admin Hydromorphone HCl 0.5 mg 04/25/25 02:40 04/25/25 02:47 Hydromorphone 0.5 Mg/0.5 Ml Inj IVP 04/25/25 02:41 0.5 mg ONCE ONE Administration Ketorolac Tromethamine 15 mg 04/25/25 03:13 04/25/25 03:22 Ketorolac 15 Mg/Ml Inj IVP 04/25/25 03:14 15 mg ONCE ONE Administration Lorazepam 0.5 mg 04/25/25 05:02 04/25/25 05:07 Lorazepam 2 Mg/Ml Inj IVP 04/25/25 05:03 0.5 mg ONCE ONE Administration Ondansetron HCl 4 mg 04/25/25 02:40 04/25/25 02:47 Ondansetron 2 Mg/Ml Inj IVP 04/25/25 02:41 4 mg ONCE ONE Administration Ondansetron HCl 4 mg 04/25/25 05:50 04/25/25 05:57 Ondansetron 2 Mg/Ml Inj IVP 04/25/25 05:51 4 mg ONCE ONE Administration Medical Decision Making Lab Data Labs: Lab Results 04/25/25 04/25/25 04/25/25 Range/Units 02:49 02:50 03:20 WBC 7.46 (4.50-11.00) K/uL RBC 4.90 (4.00-5.20) m/uL Hgb 13.9 (12.0-16.0) gm/dL Hct 43.1 (33.0-51.0) % MCV 88 (80-100) fL MCH 28 (26-34) pg MCHC 32 (32-36) gm/dL RDW Coeff of Osei 13.8 (11.5-15.5) % Plt Count 212 (140-440) K/uL Neut % (Auto) 75.3 H (42.0-72.0) % Lymph % (Auto) 15.8 L (20-44) % Leon % (Auto) 5.6 (0.0-11.0) % Eos % (Auto) 2.5 (0.0-7.0) % Baso % (Auto) 0.5 (0.0-3.0) % Neut # (Auto) 5.60 (1.7-7.0) K/uL Lymph # (Auto) 1.20 (0.90-2.90) K/uL Leon # (Auto) 0.40 (0.00-0.90) K/UL Eos # (Auto) 0.19 (0.00-0.50) K/uL Baso # (Auto) 0.04 (0.00-0.30) K/uL Abs Immat Gran (auto) 0.02 (0.00-0.30) K/uL Imm/Tot Granulo (auto) 0.3 % Sodium 137 (135-149) mmol/L Potassium 3.5 L (3.6-5.1) mmol/L Chloride 102 (96-114) mmol/L Carbon Dioxide 28 (20-32) mmol/L Anion Gap 7 (7-15) mEq/L BUN 16 (7-30) mg/dL Creatinine 0.8 (0.5-1.5) mg/dL Estimated Creat Clear 64.58 Estimated GFR 84 ml/min Glucose 151 H (60-115) mg/dL Calcium 9.0 (8.4-10.6) mg/dL Total Bilirubin 0.3 (0.1-1.5) mg/dL Direct Bilirubin 0.1 (0.0-0.5) mg/dL AST 51 H (12-35) U/L ALT 72 H (4-35) U/L Alkaline Phosphatase 70 (40-150) U/L Total Protein 7.0 (6.0-8.3) g/dL Albumin 4.0 (3.3-5.0) g/dL Lipase 212 (23-300) U/L Urine Color Yellow (Yellow) Urine Appearance Clear (Clear) Urine pH 7.5 (5.0-8.5) Ur Specific [place] 1.020 (1.000-1.030) Urine Protein Negative (Negative) Urine Glucose (UA) Negative (Negative) Urine Ketones Negative (Negative) Urine Blood Negative (Negative) Urine Nitrite Negative (Negative) Urine Bilirubin Negative (Negative) Urine Urobilinogen 0.2 (0.2-1.0) Ur Leukocyte Esterase Negative (Negative) Urine RBC 0-2 (0-2) Urine WBC 0-2 (0-5) Ur Squamous Epith Cells None (None-Few) Urine Bacteria None (None) Lab Acknowledgement POC Creatinine 0.9 (0.6-1.3) mg/dl 04/25/25 Range/Units 05:44 WBC (4.50-11.00) K/uL RBC (4.00-5.20) m/uL Hgb (12.0-16.0) gm/dL Hct (33.0-51.0) % MCV (80-100) fL MCH (26-34) pg MCHC (32-36) gm/dL RDW Coeff of Osei (11.5-15.5) % Plt Count (140-440) K/uL Neut % (Auto) (42.0-72.0) % Lymph % (Auto) (20-44) % Leon % (Auto) (0.0-11.0) % Eos % (Auto) (0.0-7.0) % Baso % (Auto) (0.0-3.0) % Neut # (Auto) (1.7-7.0) K/uL Lymph # (Auto) (0.90-2.90) K/uL Leon # (Auto) (0.00-0.90) K/UL Eos # (Auto) (0.00-0.50) K/uL Baso # (Auto) (0.00-0.30) K/uL Abs Immat Gran (auto) (0.00-0.30) K/uL Imm/Tot Granulo (auto) % Sodium (135-149) mmol/L Potassium (3.6-5.1) mmol/L Chloride (96-114) mmol/L Carbon Dioxide (20-32) mmol/L Anion Gap (7-15) mEq/L BUN (7-30) mg/dL Creatinine (0.5-1.5) mg/dL Estimated Creat Clear Estimated GFR ml/min Glucose (60-115) mg/dL Calcium (8.4-10.6) mg/dL Total Bilirubin (0.1-1.5) mg/dL Direct Bilirubin (0.0-0.5) mg/dL AST (12-35) U/L ALT (4-35) U/L Alkaline Phosphatase (40-150) U/L Total Protein (6.0-8.3) g/dL Albumin (3.3-5.0) g/dL Lipase (23-300) U/L Urine Color (Yellow) Urine Appearance (Clear) Urine pH (5.0-8.5) Ur Specific [place] (1.000-1.030) Urine Protein (Negative) Urine Glucose (UA) (Negative) Urine Ketones (Negative) Urine Blood (Negative) Urine Nitrite (Negative) Urine Bilirubin (Negative) Urine Urobilinogen (0.2-1.0) Ur Leukocyte Esterase (Negative) Urine RBC (0-2) Urine WBC (0-5) Ur Squamous Epith Cells (None-Few) Urine Bacteria (None) Lab Acknowledgement Test Added POC Creatinine (0.6-1.3) mg/dl Discharge Plan Discharge Clinical Impression: Ovarian torsion Patient Disposition: XFER to OR
--- NOTE | 2025-04-25 02:40 | CRLHL7_ITS ---
For Patients: As a result of the Century Cures Act, medical imaging exams and procedure reports are released immediately into your electronic medical record. You may view this report before your referring provider. If you have questions, please contact your health care provider. Indication: Right lower quadrant pain Technique: CT through the abdomen and pelvis following 81 mL Isovue 370 IV contrast Comparison: None Findings: Lower chest: Patchy opacities in the right lung base. Hepatobiliary: No significant parenchymal abnormality is appreciated. Multiple simple biliary cysts are noted, though 1 of the cysts in the left liver is large measuring up to 7.5 cm. Spleen: Unremarkable. Pancreas: No acute abnormality appreciated. Adrenal glands: No acute abnormality appreciated. Kidneys: No significant parenchymal abnormality appreciated. No visualized calculi. No hydronephrosis. Bowel: No obstruction. No focal perienteric or pericolonic stranding is appreciated. The appendix is visualized and appears unremarkable. Vascular: No acute abnormality appreciated. Lymph nodes: No gross lymphadenopathy. Peritoneum: Trace free fluid. : Question masses within the endometrium, could represent fibroids with no comparison study available. The right ovary is enlarged and heterogeneous with multiple cystic and solid foci and measures up to 5.8 cm. Soft tissues: No acute abnormality appreciated. Bones: No acute fracture. No lytic or blastic lesion. Mild spondylosis. Impression: 1. The right ovary is enlarged, heterogeneous, with multiple cystic and solid foci present. Small volume free fluid in the pelvis. No comparison studies available but in this age group the primary differential consideration would be torsion or a cystic and solid neoplasm. If there is concern for acute pathology, ultrasound would be recommended. Otherwise, referral for contrast-enhanced MRI would be recommended. 2. Patchy opacities in the right lung base suspicious for pneumonia. Follow-up CT in 3 months recommended. 3. Multiple simple biliary cysts are present, though there is a large cyst measuring 7.5 cm in the left liver. This is likely incidental but can be reassessed on future imaging. Please note that all CT scans at this facility use dose modulation, iterative reconstruction, and/or weight-based dosing when appropriate to reduce radiation dose to as low as reasonably achievable. Dictated by Yordy Mcmullen MD @ 04/25/2025 3:36:17 AM (Electronically Signed)
[2025-04-25] MEDS: ONDANSETRON 2 MG/ML inj 4 MG IVP ×2 (02:47→05:57)
[2025-04-25 02:55] LABS: Creatinine, Point-of-Care* 0.9 mg/dl (0.6-1.3)
[2025-04-25 02:56] LABS: Hematocrit* 43.1 % (33.0-51.0); Hemoglobin* 13.9 gm/dL (12.0-16.0); Immature Granulocytes Abs Auto 0.02 K/uL (0.00-0.30); Immature Granulocytes Pct Auto 0.3 %; Mean Corpuscular HGB Conc 32 gm/dL (32-36); Mean Corpuscular Hemoglobin 28 pg (26-34); Mean Corpuscular Volume 88 fL (80-100); RDW Coefficient of Variation % 13.8 % (11.5-15.5); Red Blood Count* 4.90 m/uL (4.00-5.20); White Blood Count* 7.46 K/uL (4.50-11.00)
[2025-04-25 03:01] LABS: Lymphocytes Absolute Auto 1.20 K/uL (0.90-2.90); Slide Review Reflex No
[2025-04-25 03:06] LABS: Albumin* 4.0 g/dL (3.3-5.0); Chloride* 102 mmol/L (96-114); Sodium* 137 mmol/L (135-149)
[2025-04-25 03:07] LABS: Potassium* 3.5 mmol/L (3.6-5.1)
[2025-04-25 03:09] LABS: Alanine Aminotransferase* 72 U/L (4-35); Alkaline Phosphatase* 70 U/L (40-150); Anion Gap 7 mEq/L (7-15); Aspartate Amino Transferase* 51 U/L (12-35); Bilirubin Direct* 0.1 mg/dL (0.0-0.5); Bilirubin Total* 0.3 mg/dL (0.1-1.5); Blood Urea Nitrogen* 16 mg/dL (7-30); Carbon Dioxide* 28 mmol/L (20-32); Creatinine* 0.8 mg/dL (0.5-1.5); Est. Creatinine Clearance* 64.58; Estimated Glomerular Filt Rate 84 ml/min; Total Protein* 7.0 g/dL (6.0-8.3)
[2025-04-25 03:10] LABS: Calcium* 9.0 mg/dL (8.4-10.6); Glucose* 151 mg/dL (60-115)
[2025-04-25 03:25] LABS: Appearance Urine Clear (Clear)
--- NOTE | 2025-04-25 03:41 | CRLHL7_ITS ---
For Patients: As a result of the Century Cures Act, medical imaging exams and procedure reports are released immediately into your electronic medical record. You may view this report before your referring provider. If you have questions, please contact your health care provider. Indication: Right lower quadrant pain. Technique: Ultrasound pelvis transabdominal and transvaginal for better assessment of the endometrium. Real-time sonographic images with spectral and color Doppler imaging of the ovaries were obtained. Comparison: CT abdomen pelvis April 25, 2025. Findings: Uterus: Size: 6 x 5 x 4 cm. Mass: There are 3 distinct intramural or submucosal fibroids with the largest measuring 2 cm. Endometrium: Transvaginal imaging was performed to better evaluate the endometrium. Thickness: 3 mm. Mass or fluid collection: No. Right ovary: Size: 6 x 4 x 4 cm. Mass: No. Blood flow: Venous blood flow is visualized. Arterial blood flow is not distinctly seen. Left ovary: Size: 3 x 3 x 2 cm. Mass: No. Blood flow: Normal arterial and venous blood flow. Cul-de-sac and adnexa: Significant free Fluid: No. Mass: No. Impression: 1. Right ovary is enlarged without demonstrable arterial blood flow. Ovarian torsion must be considered but is not definite. 2. Three uterine fibroids with the largest measuring 2 cm. Dictated by Evert Díaz MD @ 04/25/2025 5:29:01 AM (Electronically Signed)
--- NOTE | 2025-04-25 06:49 | P.GYNCN_ITS ---
OPERATIONS SUPPORT SPECIALIST - CN: HPI Data of Consult Date Seen: 04/25/25 Patient: Other Requesting Physician: Piper Saez MD Primary Care Provider: Mariam Solorzano MD Consult Narrative Narrative: Mariam Thompson is a 60 year old female who presented to the emergency room with acute onset of right sided pelvic pain. She was in her normal state of health until 1:00 a.m. which she felt an intense pop that caused her to double over in pain. Pain is localized to her right side and non radiating. She and her presented to the [facility] but the wait time was 6 hours and she was in so much pain that she did not feel that she could wait that long to be evaluated. Thus, they presented here. Since being here she's needed multiple medications to manage her pain and nausea since she's been here (hydromorphone 0.5 mg x 2, fentanyl 50 mcg x 1, ketorolac 15 mg x 1, ondansetron 4 mg x 2). No vomiting. Moving her right leg causes her a lot of abdominal pain. Hx of pneumonia a month ago. Otherwise, denies unintentional weight loss, changes in appetite, abdominal bloating, fever, chills, CP or SOB. Has been postmenopausal for year and denies vaginal bleeding during that time period. She had recent colonoscopy in 2023 that was normal with plan to followup in 10 years. Family hx is postive for a grandmother with ovarian cancer diagnosed in her 90s. We reviewed her pertinent imaging findings together. CTAP Impression: 1. The right ovary is enlarged, heterogeneous, with multiple cystic and solid foci present measures up to 5.8 cm. Small volume free fluid in the pelvis. No comparison studies available but in this age group the primary differential consideration would be torsion or a cystic and solid neoplasm. Pelvic US Impression: 1. Right ovary is enlarged (6 x 4 x 4 cm) without demonstrable arterial blood flow. Ovarian torsion must be considered but is not definite. We discussed the diagnosis ovarian torsion. This is a gynecologic surgical emergency involving the twisting of the ovary on its ligamental supports. This can lead to vascular compromise and ovarian infarct. This is the cause of her severe pain. The complexity with this case is that she is postmenopausal with a heterogenous mass. Thus, I worry significantly about a malignancy. Ideally, in the context of a heterogenous ovarian mass in a postmenopausal woman, we would have time to do a more thorough workup including tumor markers to help with assessing the risk of malignancy. If there is high enough suspicion, my preference is that she have her surgery with Gyne Onc where there would be an availability to do frozen section and proceed with surgical debulking in the same surgery if needed. If there is a malignancy, deviation from the standard approach could worsen outcomes. Unfortunately, given her severe pain and the emergent situation, we would need to proceed surgically without the availability of heavy forging machine operator Oncology and frozen section. I did ask the ED physician to add on tumor markers (CA 125, CEA, CA 19 9). I will not have those results back in an expeditious manner. Patient understands that this could put her at risk for needing further surgery in the future if pathology comes back as malignant. She does not feel like there are any other options given how much pain she's in. cc:: CC: Piper Saez MD [facility] Social History Smoking Status: Never smoker Do you use any of these nicotine containing products: None How often do you have a drink containing alcohol: 2-3 times a week How many standard drinks containing alcohol do you have on a typical day: 3 or 4 How often do you have six or more drinks on one occasion: Less than monthly AUDIT-C Alcohol total score: 5 Non-prescribed substance use: denies use service: No Meds Home Medications and Allergies Home Medications ?Medication ?Instructions ?Recorded ?Confirmed ?Type albuterol sulfate 90 mcg/actuation 2 puff inhalation Q 4H PRN 04/25/25 04/25/25 History aerosol inhaler atorvastatin 20 mg tablet 20 mg PO DAILY 04/25/2504/02 History hydrochlorothiazide 25 mg tablet 25 mg PO DAILY 04/25/25 History trazodone 50 mg tablet 50 mg PO QPM 04/25/25 History Allergies Allergy/AdvReac Type Severity Reaction Status Date / Time No Known Drug Allergies Allergy Verified 04/25/25 04:05 OPERATIONS SUPPORT SPECIALIST - Exam Physical Exam: Vital signs: Temp Pulse Resp BP Pulse Ox O2 Del Method 97.2 F L 67 21 146/78 H 96 Room Air 04/25/25 05:00 04/25/25 05:00 04/25/25 05:00 04/25/25 05:00 04/25/25 05:00 04/25/25 05:00 Narrative: Physical exam: General: Wincing in pain throughout our conversation. Psych: Alert and oriented x4, full affect HEENT: Normocephalic, atraumatic Lungs: Unlabored breathing Abdomen:+ peritoneal sign. Pain localized to right lower quadrant. Guarding noted there. Skin: No lesions or rashes Lower extremities: No edema or erythema Pelvic exam: Deferred to OR OPERATIONS SUPPORT SPECIALIST - Results Labs Labs: Short CBC 04/25/25 Range/Units 02:50 WBC 7.46 (4.50-11.00) K/uL Hgb 13.9 (12.0-16.0) gm/dL Hct 43.1 (33.0-51.0) % Plt Count 212 (140-440) K/uL BMP 04/25/25 02:50 Sodium 137 Potassium 3.5 L Chloride 102 Carbon Dioxide 28 BUN 16 Creatinine 0.8 Glucose 151 H Calcium 9.0 Liver Function 04/25/25 Range/Units 02:50 Total Bilirubin 0.3 (0.1-1.5) mg/dL Direct Bilirubin 0.1 (0.0-0.5) mg/dL AST 51 H (12-35) U/L ALT 72 H (4-35) U/L Alkaline Phosphatase 70 (40-150) U/L Albumin 4.0 (3.3-5.0) g/dL Urine 04/25/25 Range/Units 03:20 Urine Color Yellow (Yellow) Urine Appearance Clear (Clear) Urine pH 7.5 (5.0-8.5) Ur Specific [place] 1.020 (1.000-1.030) Urine Protein Negative (Negative) Urine Glucose (UA) Negative (Negative) Assessment and Plan Assessment and plan (1) Ovarian torsion: Status: Acute (2) Ovarian mass, right: Status: Acute Plan - She was consented for diagnostic laparoscopy, pelvic washing, ovarian detorsion, bilateral salpingo oophorectomy, possible open laparotomy, for the indication (s) of right ovarian torsion and right ovarian mass. I discussed rationale for bilateral salpingo oophorectomy. Patient is postmenopausal and do not require those structures for childbearing. Additionally, we do not want to risk that this will happen to her left adnexa. I would want them sent for pathology evaluation to assess for malignancy in those structure. We discussed the steps of the procedure. Risks/benefits/alternatives were discussed. With regards to risks we discussed risks with a general anesthesia, pain, bleeding, infection, damage to the surrounding structures, risk of spillage in the context of a malignancy could cause upstaging. - We discussed strategies to minimize these risks. All questions answered to patient's and her spouse's satisfaction. Consent signed and she would like to proceed with the plan outlined above. - we discussed anticipated recovery. Should be able to go home after recovery. I anticipate pathology to come back within a week. Plan to have a 2 week postop follow-up visit. - Hgb/plt 13.9/212 - Case discussed with Dr. Carter who takes over call at 0700 and she agreed with the plan. OR crew notified.
[2025-04-25] MEDS: LACTATED RINGERS 1000 ML 1,000 ML 75 ML IV (06:56)
[2025-04-25] MEDS: BUPIVACAINE 0.5 %/EPI 1:200K 30 ML INJECTION (08:15)
--- NOTE | 2025-04-25 09:18 | P.GYNPRC_ITS ---
Procedure Note Time Seen by Provider: 06:30 Date of procedure: 04/25/25 Will [facility] bill your pro fee for this procedure?: Yes Pre-op diagnosis: 1. Right ovarian torsion due to complex right ovarian mass 2. Acute abdomen Post-op diagnosis: 1. Torsion of the right adnexa including of the right ovary and fallopian tube. Ruptured and black/necrotic appearing 2. Hemoperitoneum due to ruptured right ovary Procedure: 1. Diagnostic laparoscopy 2. Pelvic washing 3. Right ovarian detorsion 4. Bilateral salpingo oophorectomy 5. Excision of left posterior cul-de-sac peritoneal lesion Anesthesia: GETA and local Complications: none Surgeon: MD Carolann Simpson MD Estimated blood loss (mL): 5 IV fluids (mL): 900 Urine Output (mL): 800 Pathology: specimen obtained, sent to pathology (1. pelvic washing 2. Right adnexa (right ovary and fallopian tube) 3. Left Adnexa (left ovary and fallopian tube) 4. Peritoneal lesion in the left posterior cul-de-sac) Condition: stable Disposition: same day Findings: Operative Findings: Exam under anesthesia: Pelvic exam: Mons normal, clitoris normal, urethral meatus normal. Labia minora and majora normal in appearance bilaterally. Perineum and anus normal appearance. Vaginal introitus normal appearance. Vag inal pink with some atrophy and scant white discharge. Cervix mildly stenotic appearing but otherwise no lesions or masses. Bimanual exam reveals uterus to be soft, nontender, mobile, of normal size and texture. Adnexal assessment deferred not risk disrupting right adnexa On laparoscopy: approximately 200 mL of hemoperitoneum noted upon entry. Blood throughout the abdomen all the way up to the liver and the diaphragm. Bleeding noted to be coming from the right adnexa. Right ovary and fallopian tube were torsed, ruptured and necrotic appearing covered in clots and some fresh blood. It was twisted x3 Around the infundibulopelvic ligament. after detorsion, right ovary and fallopian to were noted to be enlarged, congested, covered in clot, slow bleeding coming from the right ovary. The right ovary appeared multi cystic and contour with irregular contours. small subserosal fibroid noted at the uterine fundus. Otherwise, uterus appeared normal. Left fallopian tube appeared normal without evidence of previous tubal ligation. Left ovary appeared multi cystic but small. Diaphragm noted to be smooth and intact without lesions. Liver noted to be of normal size, smooth surface, no lacerations, lesions, or capsular abnormalities. Gallbladder was grossly normal appearing. Stomach grossly normal appearing. Omentum normal. Small bowel normal. Cecum appendix and terminal ileum normal with slight filmy adhesions. Sigmoid colon normal appearing. Bladder dome intact. Peritoneal surface was move with the exception of once subcentimeter clear lesion on the left posterior cul-de-sac. Procedure Description: Clinical Note: Ms. Becerra is a 60 year old female who presented with acute abdomen and was subsequently noted to have a 6 cm enlarged ovary without demonstration of arterial blood flow. Mariam was taken to the operating room where general anesthetic was found to be adequate. She was placed in the dorsal lithotomy position and an exam under anesthesia was performed with findings stated above. She was then prepped and draped in a normal sterile manner. A Bladder was drained when Barrientos catheter was placed. Sponges was placed intravaginally to act as uterine manipulator. Attention was then turned to performing the laparoscopic portion of the procedure. All incisions were infiltrated with 0.5% bupivacaine with epinephrine prior to incising the skin. A vertical, infraumbilical 5 mm incision was made. Fascia was incised. A 5 mm trocar was then placed under direct visualization via take down method. The abdomen was then insufflated with CO2 gas to a pressure of 15 mm of mercury. The patient was then placed in steep Trendelenburg. Two pelvic ports were then placed approximately 3-4 finger breaths medial to the ischial crests. The trocar in the RLQ = 5mm, LLq = 11mm. These were placed under direct visualization. A 4th port was made in the patient's left lower quadrant, just superior medial to the left ASIS. A 5 mm Fios Kii port was inserted under direct visualization and without complication. The balloon on each of the 4 ports was inflated, holding each in place. Examination of the peritoneal cavity revealed no signs of injury from entry and findings noted above. Attention was then turned to performing the diagnostic laparoscopy. Pelvic washing was done first. After pelvic washing was completed, the uterus was lifted towards the anterior abdominal wall. This resulted in the right adnexa de torsing after 3 spins. Attention was then turned towards right adnexectomy. the right infundibulopelvic ligament was identified, skeletonized, and coagulated using bipolar cautery, then transected. Subsequent pedicles were made working towards the uterine cornua. The utero-ovarian ligament and fallopian tube were similarly coagulated and transected. The right ureter was easily identified and noted to be vermiculating throughout this entire process and kept away from active surgical transsection. After detachment of the right adnexa, specimen was removed from abdomen via Endo-Catch bag. specimen was decompressed at the incision site to allow for the Endo-Catch bag to be removed through the 11 mm incision. Special care taken to decrease contamination of the incision site by wrapping the incision site with 2 green towels. New surgical gloves were put on after handling of the specimen. Attention was then turned towards performing left salpingo oophorectomy. This was performed in a similar manner. Again, the specimen was removed via Endo- Catch bag. New surgical gloves were put on after handling of the specimen. Excisional biopsy performed to remove small subcentimeter lesion from the left posterior cul-de-sac. Biopsy site was cauterized with monopolar valley pen. Excellent hemostasis was noted of all pedicles. Intra-abdominal cavity was irrigated. A significant amount of time was spent removing hemoperitoneum from the abdomen via suction. Fascia closed on the 11 port with Trevor-Gladis and an additional [id number] on a UR needle 1 small amount of gas can be heard to be escaping from the port site. After the additional stitch, fascia and noted closed and intact without additional leakage of gas. The trocars were then removed under direct visualization. The CO2 gas was allowed to escape the infraumbilical port prior to its removal. All incisions were reapproximated using 4-0 Monocryl in a running subcuticular manner. Exofin was applied over each incision. The vaginal manipulator and Barrientos catheter were removed. The patient tolerated this procedure well. Sponge, lap and instrument counts were correct x2 at the end of the procedure and the patient was taken to the recovery area in stable condition. Surgical debrief performed and specimen reviewed.
--- NOTE | 2025-04-25 09:45 | P.ANES_ITS ---
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
--- NOTE | 2025-04-25 09:45 | W.ANESCHARGE ---
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
[2025-04-25] MEDS: ACETAMINOPHEN 500 MG TABLET 1000 MG PO (10:33)
[2025-04-25] MEDS: LACTATED RINGERS 1000 ML 1,000 ML 100 ML IV (10:35)
--- NOTE | 2025-04-25 15:36 | PC.NURSE ---
Discharge: Patient pleasant and cooperative. Patient vitally stable, lungs clear, BS WNL, IV removed, catheter intact. Patient rates abdominal pain at most 1-2/10, tylenol given once. Patient's abdominal lap sites x3 glued closed without drainage. Patient urinated 300ml and tolerated regular diet. Patient signed belongings sheet and discharge form with no further questions regarding education. Patient left the floor by wheelchair to home at 1527
[2025-04-27 20:07] LABS: Cancer Antigen-GI (CA 19-9) <2 U/mL (<=35); Carcinoembryonic Antigen 2.8 ng/mL (<=3.8)
== END 2025-04-25 15:27 | disposition home or self-care (01) ==
LOC: ED 05:48 → SS 06:11 → MEDSURG 10:14
PROVIDERS: Emergency Provider Family Medicine; PCP Family Medicine; Visit Provider Obstetrics & Gynecology
PROC: (CPT 58662; principal; 2025-04-25 06:30)
DX: N83.53 Torsion of ovary, ovarian pedicle and fallopian tube (principal); K66.1 Hemoperitoneum; D27.0 Benign neoplasm of right ovary; D27.1 Benign neoplasm of left ovary; N94.89 Other specified conditions associated with female genital organs and menstrual cycle
CPT/HCPCS: 49329; 58679; 58661; 49321; 00840; 36415; 74177; 76830; 76856; 80048; 80076; 81001; 82378; 82565; 83690; 85025; 86301; 86304; 87070; 87075; 87186; 87205; 88112; 88305; 88307; 93976; 99140; 99285; A9270; J0330; J1100; J1171; J1630; J1885; J2060; J2371; J2405; J2704; J3010; J3490; J7120; Q9967